=== PATIENT | male | born 1940 | race African-American/Black ===

== ENCOUNTER 2016-10-05 11:15 | Inpatient (IN) | payer MEDICARE ==
[~2016-10-05] VITALS: Ht 175.3 cm; Wt 69.4 kg
[2016-10-05 11:52] LABS: BASOPHILS 0.3 % (0.0-2.0); EOSINOPHILS 0.6 % (0-7); HEMATOCRIT 37.3 % (42.0-54.0); HEMOGLOBIN 12.3 g/dL (13.5-17.5); LYMPHOCYTES 38.5 % (15-50); MCH 27.4 pg (26.0-34.0); MCV 83.1 fL (80.0-100.0); MEAN PLATELET VOLUME 10.3 fL (7.4-10.4); MONOCYTES 8.5 % (2-11); NEUTROPHILS 52.1 % (40-80); PLATELET COUNT 192 10x3/uL (130-400); RBC 4.49 10x6/uL (4.20-6.10); WBC 3.4 10x3/uL (4.8-10.8)
[2016-10-05 12:05] LABS: ALBUMIN 3.4 g/dL (3.4-5.0); ANION GAP 16.3 mmol/L (8-16); BILIRUBIN - TOTAL 0.48 mg/dL (0.2-1.3); CALCIUM 9.4 mg/dL (8.5-10.1); CARBON DIOXIDE 23.3 mmol/L (21.0-32.0); CREATININE - SERUM 1.2 mg/dL (0.6-1.3); POTASSIUM - SERUM 4.6 mmol/L (3.5-5.1); PROTEIN - SERUM 8.1 g/dL (6.4-8.2); TROPONIN-I 0.049 ng/mL (0.000-0.060)
[2016-10-05 13:20] LABS: APPEARANCE CLEAR (CLEAR); BILIRUBIN NEGATIVE (NEGATIVE); COLOR YELLOW (YELLOW); GLUCOSE 1000 mg/dL (NEGATIVE); KETONE MODERATE mg/dL (NEGATIVE); LEUKOCYTE ESTERASE NEGATIVE (NEGATIVE); NITRITE NEGATIVE (NEGATIVE); PROTEIN NEGATIVE (NEGATIVE); UROBILINOGEN NORMAL (NORMAL)
--- NOTE | 2016-10-05 14:45 | NUR ---
PATIENT RECEIVED TO FLOOR FROM ER VIA WHEELCHAIR. ORIENTED TO ROOM. FAMILY PRESENT. SIDE RAILS UP X2. BED IN LOW POSITION. CALL LIGHT IN REACH.
[2016-10-05] MEDS ORDERED: METOPROLOL TART50 MG PO (15:06)
[2016-10-05] MEDS ORDERED: FUROSEMIDE40 MG PO (15:07)
[2016-10-05] MEDS ORDERED: ZESTRIL20 MG PO (15:07)
[2016-10-05] MEDS ORDERED: NOVOLOG MIX 70/10 ML SQ (15:07)
[2016-10-05] MEDS ORDERED: TERAZOSIN HCL2 MG PO (15:07)
[2016-10-05] MEDS ORDERED: CARAFATE1 G PO (15:08)
[2016-10-05] MEDS ORDERED: OMEPRAZOLE20 M1 PO (15:08)
[2016-10-05] MEDS ORDERED: PRAVACHOL40 MG PO (15:08)
[2016-10-05] MEDS ORDERED: GLUCOPHAGE500 MG PO (15:08)
[2016-10-05 15:14] VITALS: BP 172/89; BMI 21.4
[2016-10-05 15:32] LABS: HEMOGLOBIN A1C 14.2 % (4.8-6.0)
--- NOTE | 2016-10-05 16:20 | NUR ---
TELEMETRY PLACED ON PATIENT. CONSTRUCTION TRADES TEACHER REPORTS 105 SINUS TACH
--- NOTE | 2016-10-05 18:15 | NUR ---
SCDS PLACED BILATERALLY ON PATIENT. USE EXPLAINED. STATES UNDERSTANDING.
--- NOTE | 2016-10-05 20:00 | NUR ---
ASSESSMENT PER FLOWSHEET. IV PATENT LEFT WRIST WITH 1/2NS AT 75CC'S/HR SALINE LOCK PATENT RT HAND SITES CLEAR. VISITOR AT BEDSIDE.
[2016-10-05 21:00] VITALS: BP 122/77
--- NOTE | 2016-10-05 22:00 | NUR ---
MEDS PER FLOWSHEET.DAYD=654. REGULAR INSULIN 4 UNITS GIVEN SUBC PER S/S TO LEFT ARM.
[2016-10-06 01:00] VITALS: BP 126/76
--- NOTE | 2016-10-06 01:30 | NUR ---
EYES CLOSED RESPIRATIONS WITH EASE AND UNLABORED.
--- NOTE | 2016-10-06 04:11 | NUR ---
RESTING QUIETLY RESPIRATIONS WITH EASE AND UNLABORED.
[2016-10-06 05:00] VITALS: BP 125/66
[2016-10-06 06:51] LABS: BASOPHILS 0.3 % (0.0-2.0); EOSINOPHILS 0.6 % (0-7); HEMATOCRIT 33.9 % (42.0-54.0); IMMATURE GRANULOCYTES 0.3 % (0-5); LYMPHOCYTES 43.2 % (15-50); MCHC 32.4 g/dL (31.0-37.0); MCV 83.1 fL (80.0-100.0); MEAN PLATELET VOLUME 11.1 fL (7.4-10.4); MONOCYTES 10.4 % (2-11); NEUTROPHILS 45.2 % (40-80); PLATELET COUNT 182 10x3/uL (130-400); RBC 4.08 10x6/uL (4.20-6.10); RDW 14.9 % (11.5-14.5); WBC 3.1 10x3/uL (4.8-10.8)
[2016-10-06 07:21] LABS: ALBUMIN 2.8 g/dL (3.4-5.0); ALKALINE PHOSPHATASE 54 U/L (46-116); ALT (SGPT) 17 U/L (10-68); CALC OSMOLALITY 270 mosm/kg (275-300); CALCIUM 8.2 mg/dL (8.5-10.1); CARBON DIOXIDE 21.6 mmol/L (21.0-32.0); CHLORIDE - SERUM 96 mmol/L (98-107); CREATININE - SERUM 0.9 mg/dL (0.6-1.3); GLUCOSE 314 mg/dL (74-106); POTASSIUM - SERUM 3.9 mmol/L (3.5-5.1); PROTEIN - SERUM 6.7 g/dL (6.4-8.2); SODIUM 129 mmol/L (136-145); UREA NITROGEN 13 mg/dL (7-18); eGFR NON AFRICAN AMERICAN 87 mL/min (90-120)
[2016-10-06 08:32] VITALS: BP 128/58
--- NOTE | 2016-10-06 08:34 | NUR ---
PATIENT AWAKE, ALERT/ORIENT X4. SITTING UP AT THE SIDE OF THE BED TO EAT BREAKFAST. SCDS ON BILATERAL LEGS. HAS CALL LIGHT WITHIN REACH. VOICES NO NEEDS
[2016-10-06 09:18] LABS: CA 19-9 Note: U/mL (0-35); CEA 3.3 ng/mL (0.0-4.7)
--- NOTE | 2016-10-06 11:39 | NUR ---
Patient Name: TIM CANDELARIA Admission Status: ER Accout number: [id number] Admission Date: 10-05-2016 : 1939 Admission Diagnosis: Attending: GABRIELLE Current LOS: 1 Anticipated DC Date: 10-09-2016 Planned Disposition: Home with Home Health Primary Insurance: MEDICARE A & B Discharge Planning Comments: CM SPOKE WITH PATIENT REGARDING D/C NEEDS AND PLANS. PATIENT STATED HE LIVES ALONE AND HIS BROTHER (SOHAM) CHECKS ON HIM OFTEN. PATIENT STATED HIS BROTHER WILL DRIVE HIM HOME AT DISCHARGE. PATIENT STATED THERE ARE 2 STEPS W/O RAILS TO ENTER HOME AND NO STAIRS INSIDE. PATIENT STATED HE IS INDEPENDENT WITH HIS CARE AND HAS A GLUCOMETER, CANE, AND WALKER AT HOME IF NEEDED. PATIENT STATED HE KNOWS NOW TO CHECK HIS BS OFTEN. PATIENT STATED HE HAS NOT CHECKED IT IN SOMETIME. CM OFFERED HOME HEALTH AND PATIENT CHOSE [facility] AND SIGNED THE [facility] FORM. PATIENTS PCP IS DR. LANDAVERDE IN [place] AND USES [facility] IN [place]. CM WILL CONTINUE TO FOLLOW PATIENT WITH D/C NEEDS AND PLANS. PCP DR. AKHIL RENEE IN [place] (PHARMACY) [phone] SOHAM (BROTHER) [phone] OR [phone] Inclusion Special Education Teacher: Halye Stevens Is the patient Alert and Oriented? Yes 0 * How many steps to enter\exit or inside your home? 2 W/O RAIL 0 * PCP DR. LANDAVERDE 0 * Pharmacy [facility] IN [place] 0 * Preadmission Environment Home Alone 0 * ADLs Independent 0 * Equipment Cane Glucometer Walker 0 * List name and contact numbers for known caregivers / representatives who currently or will assist patient after discharge: SOHAM (BROTHER) [phone] W [phone] 0 * Community resources currently utilized None 0 * Additional services required to return to the preadmission environment? Yes 0 * Can the patient safely return to the preadmission environment? Yes 0 * Has this patient been hospitalized within the prior 30 days at any hospital? No 0 Grand Total: 0
--- NOTE | 2016-10-06 11:49 | NUR ---
INSULIN ADMINISTERED BY JOSE HAQ AT THIS TIME. PT IS SLEEPING WITH RESPIRATIONS EVEN AND NON LABORED. IV PATENT. NO S/S OF DISTRESS PRESENT. WILL CONTINUE WITH PLAN OF CARE.
[2016-10-06 11:50] VITALS: BP 109/61
[2016-10-06 12:32] VITALS: Ht 175.3 cm; Wt 69.4 kg
--- NOTE | 2016-10-06 13:00 | NUR ---
DR. ANTHONY INTO SEE PATIENT. NEW ORDERS RECEIVED.
--- NOTE | 2016-10-06 13:44 | NUR ---
Rehab Prescreening Consult recieved and the chart has been reviewed. He is a good inpatient rehab candidate but has a GI consult as well as a ST consult pending. Rehab will follow along with him while work up is in progress. Elmira Gutierres RN Clinical Liaison, rehab
[2016-10-06 16:17] VITALS: BP 90/40
--- NOTE | 2016-10-06 17:48 | NUR ---
PRN ZOFRAN GIVEN IV FOR NAUSEA
[2016-10-06 20:19] VITALS: BP 83/41
[2016-10-07 04:20] VITALS: BP 136/76
[2016-10-07 05:26] LABS: BASOPHILS 0.3 % (0.0-2.0); EOSINOPHILS 0.3 % (0-7); HEMATOCRIT 34.4 % (42.0-54.0); HEMOGLOBIN 11.1 g/dL (13.5-17.5); IMMATURE GRANULOCYTES 0.3 % (0-5); LYMPHOCYTES 27.9 % (15-50); MCHC 32.3 g/dL (31.0-37.0); MCV 83.7 fL (80.0-100.0); MEAN PLATELET VOLUME 11.2 fL (7.4-10.4); MONOCYTES 10.1 % (2-11); NEUTROPHILS 61.1 % (40-80); PLATELET COUNT 185 10x3/uL (130-400); RBC 4.11 10x6/uL (4.20-6.10); RDW 15.2 % (11.5-14.5); WBC 3.6 10x3/uL (4.8-10.8)
[2016-10-07 05:52] LABS: ALBUMIN 2.8 g/dL (3.4-5.0); ALKALINE PHOSPHATASE 52 U/L (46-116); ALT (SGPT) 17 U/L (10-68); AMYLASE - SERUM 76 U/L (25-115); CALC OSMOLALITY 260 mosm/kg (275-300); CALCIUM 8.2 mg/dL (8.5-10.1); CARBON DIOXIDE 25.7 mmol/L (21.0-32.0); CHLORIDE - SERUM 97 mmol/L (98-107); GLUCOSE 159 mg/dL (74-106); LIPASE 77 U/L (73-393); PROTEIN - SERUM 6.8 g/dL (6.4-8.2); SODIUM 128 mmol/L (136-145); THYROID STIMULATING HORMONE 4.35 uIU/mL (0.36-3.74); UREA NITROGEN 15 mg/dL (7-18); eGFR NON AFRICAN AMERICAN 77 mL/min (90-120)
--- NOTE | 2016-10-07 07:30 | NUR ---
RECIEVED PT DURING WALKING ROUNDS. PT RESTING COMFORTABLY IN BED WITH NO COMPLAINTS OF PAIN OR DISCOMFORT AT THIS TIME. ASSESSMENT DONE PER FLOWSHEET. BED IN LOW POSITION AND CALL LIGHT WITHIN REACH. WILL CONTINUE TO MONITOR.
--- NOTE | 2016-10-07 09:20 | NUR ---
HELD BP MEDICATION DUE TO PTS BP READING 100/54. WILL CONTINUE TO MONITOR.
[2016-10-07 10:06] VITALS: BP 100/54
--- NOTE | 2016-10-07 11:08 | NUR ---
NUTRITION MONITORING & EVAL ATTEMPTED DIABETIC DIET EDU. PT SLEEPING SOUNDLY. LEFT INFORMATION AT BEDSIDE. WILL TRY TO SEE PT WHEN AWAKE AND ALERT. RD FOLLOWING
--- NOTE | 2016-10-07 12:40 | NUR ---
SITTING UP ON SIDE OF BED EATING LUNCH. DENIES NEEDS. NO C/O PAIN AT THIS TIME. REPORTS CONTINUES UNABLE TO WALK. WILL MONITOR.
[2016-10-07 13:01] VITALS: BP 114/45
--- NOTE | 2016-10-07 16:19 | NUR ---
FSBS 68. PT GIVEN ORANGE JUICE AND GRAM CRACKERS AT THIS TIME. PT IS NOT SYMPOMATIC AT THIS TIME. WILL RECHECK SUGAR.
--- NOTE | 2016-10-07 17:33 | NUR ---
MONITORS CALLED ABOUT PT RUNNING IN THE 160'S HEART RATE, SINUS TACH WITH OCCASIONAL PVC'S. WENT TO CHECK ON PT AND HE WAS SITTING UP ON THE SIDE OF THE BED EATING DINNER. PT WAS ASYMPTOMATIC. CALLED MONITORS AT THIS TIME AND PT WAS 130ST. WILL CONTINUE TO MONITOR.
--- NOTE | 2016-10-07 17:56 | NUR ---
MONITORS CALLED AT THIS TIME, PT HEART RATE 120ST. PT IS LAYING IN BED WITH NO COMPLAINTS OF PAIN. FSBS 106. PT ATE 75% OF HIS DINNER. BED IN LOW POSITION AND CALL LIGHT WITHIN REACH. WILL CONTINUE TO MONITOR.
[2016-10-07 18:48] VITALS: BP 116/57
[2016-10-07 20:28] VITALS: BP 182/81
[2016-10-08] VITALS (7 sets, daily range): BP systolic 106–183; BP diastolic 63–87
--- NOTE | 2016-10-08 | NUR ---
BS 71 @ 8556, JUICE AND POPSICLE PROVIDED, 127 @ 4614, WILL CONTINUE TO MONITOR
--- NOTE | 2016-10-08 02:16 | NUR ---
RESTING WITH EYES CLOSED, RESP WITH EASE, NO ACUTE DISTRESS NOTED, SR'S UP, CL IN REACH
[2016-10-08 04:52] LABS: BASOPHILS 0.2 % (0.0-2.0); EOSINOPHILS 0 % (0-7); HEMOGLOBIN 10.4 g/dL (13.5-17.5); MCH 26.9 pg (26.0-34.0); MCHC 32.5 g/dL (31.0-37.0); MCV 82.7 fL (80.0-100.0); MEAN PLATELET VOLUME 10.9 fL (7.4-10.4); NEUTROPHILS 58.8 % (40-80); PLATELET COUNT 163 10x3/uL (130-400); RBC 3.87 10x6/uL (4.20-6.10); RDW 15.3 % (11.5-14.5); WBC 4.1 10x3/uL (4.8-10.8)
[2016-10-08 05:17] LABS: ALBUMIN 2.7 g/dL (3.4-5.0); ALKALINE PHOSPHATASE 53 U/L (46-116); ALT (SGPT) 14 U/L (10-68); CALC OSMOLALITY 257 mosm/kg (275-300); CALCIUM 7.8 mg/dL (8.5-10.1); CARBON DIOXIDE 20.4 mmol/L (21.0-32.0); CHLORIDE - SERUM 98 mmol/L (98-107); CREATININE - SERUM 0.8 mg/dL (0.6-1.3); GLUCOSE 100 mg/dL (74-106); PROTEIN - SERUM 6.5 g/dL (6.4-8.2); SODIUM 129 mmol/L (136-145); UREA NITROGEN 10 mg/dL (7-18); eGFR NON AFRICAN AMERICAN > 90 mL/min (90-120)
--- NOTE | 2016-10-08 08:36 | NUR ---
LYING IN BED,WITHOUT DISTRESS.DENIES NEEDS.CALL LIGHT IN REACH
--- NOTE | 2016-10-08 08:50 | NUR ---
WAS INFORMED BY NURSES AID AT THIS TIME THAT PT HAD TEMP OF 100.8F, RECHECKED TEMP ORALLY AND IT WAS 101.0F. CALL PLACED TO DR. ANTHONY AT THIS TIME, RECIEVED ORDERS FOR BLOOD CULTURES X2, URINE CULTURES, CHEST X-RAY, AND TYLENOL 625MG NEEDED FOR FEVER. PT IS ASYMPOTOMATIC AND STATES HE FEELS GOOD. BED IN LOW POSITION AND CALL LIGHT WITHIN REACH. WILL CONTINUE TO [facility].
--- NOTE | 2016-10-08 10:30 | NUR ---
TYLENOL WAS GIVEN AT 0920, TEMP RECHECKED AT THIS TIME AND IT WAS 99.0. URINE CULTURE OBTAINED AND SENT TO LAB AT THIS TIME.
--- NOTE | 2016-10-08 11:20 | NUR ---
LEFT HAND IV TAKEN OUT AT THIS TIME DUE TO PT ACCIDENTALLY PULLING IV PARTIALLY OUT. SECURED WITH GAUZE AND TAPE. BED IN LOW POSITION AND CALL LIGHT WITHIN REACH.
--- NOTE | 2016-10-08 16:20 | NUR ---
FSBS AT THIS TIME 37. RECHECKED AND IT WAS 45. CALL PLACED TO DR. ANTHONY AND RECIEVED ORDERS TO GIVE INSTA-GLUCOSE PER PROTOCOL AND RECHECK IN 30MINUTES. IF GLUCOSE DOES NOT COME UP ORDERS RECIEVED TO ADMINISTER 1AMP OF D50. SPOKE WITH DR. ANTHONY ABOUT PT SENSITVITY TO THE INSULIN HE IS RECIEVING. WAS INFORMED TO PASS ALONG IN REPORT AND DISCUSS WITH ON-CALL PHYSICIAN TOMORROW. WAS INSTRUCTED TO CALL HIM BACK IF GLUCOSE DOES NOT INCREASE. PT LYING IN BED ASYMPTOMATIC WILL ADMINISTER MEDICATION ORDERED.
--- NOTE | 2016-10-08 17:00 | NUR ---
FSBS 68 AT THIS TIME. PT HAD A LARGE LOOSE STOOL IN THE BED AT THIS TIME. HELPING CLEAN. APPROXIMATELY HALF GOLYTELY CONSUMED AT THIS TIME. BED IN LOW POSITION AND CALL LIGHT DEANHTSABINA REACH. WILL CONTINUE TO MONITOR.
--- NOTE | 2016-10-08 20:33 | NUR ---
RECIEVED PT SITTING UP IN BED, ASSESSMENT COMPLETED, NO DISTRESS NOTED, ENCOURAGED GOLYTELY, CL IN REACH, WILL MONITOR
--- NOTE | 2016-10-08 23:00 | NUR ---
BS 34, PT ANSWERING QUESTIONS, APPROX 5 CC INSTAGLUC GIVEN PO @ 2204, PT ABLE TO SWALLOW, REFUSED MORE, IMMEDIATELY BECAME EXTREMELY LETHARGIC, UNABLE TO RESPOND TO VOICE OR PAIN, GLUCAGON GIVEN @ 2207, SAT PATIENT UP IN BED, ANOTHER DOSE OF GLUCAGON GIVEN @ 2216, BS 50 @ 2218, 64 @ 2225 AND 115 @ 2235, PT ALERT AND ORIENTED, WILL CONTINUE TO MONITOR.
--- NOTE | 2016-10-09 01:03 | NUR ---
BS 207, NO DISTRESS NOTED, WILL MONITOR FOR CHANGES, CL IN REACH
--- NOTE | 2016-10-09 03:22 | NUR ---
BS 140, PT UP TO SHOWER, NO DISTRESS NOTED, WILL CONTINUE TO MONITOR
[2016-10-09 05:54] VITALS: BP 165/82
[2016-10-09 06:40] LABS: BASOPHILS 0.2 % (0.0-2.0); EOSINOPHILS 0 % (0-7); HEMATOCRIT 30.7 % (42.0-54.0); HEMOGLOBIN 9.9 g/dL (13.5-17.5); IMMATURE GRANULOCYTES 0.2 % (0-5); LYMPHOCYTES 20.7 % (15-50); MCH 26.8 pg (26.0-34.0); MCHC 32.2 g/dL (31.0-37.0); MCV 83.2 fL (80.0-100.0); MEAN PLATELET VOLUME 9.9 fL (7.4-10.4); MONOCYTES 12.5 % (2-11); NEUTROPHILS 66.4 % (40-80); PLATELET COUNT 139 10x3/uL (130-400); RBC 3.69 10x6/uL (4.20-6.10); RDW 15.2 % (11.5-14.5); WBC 4.6 10x3/uL (4.8-10.8)
[2016-10-09 07:06] LABS: ALBUMIN 2.6 g/dL (3.4-5.0); ALKALINE PHOSPHATASE 46 U/L (46-116); ALT (SGPT) 16 U/L (10-68); CALC OSMOLALITY 258 mosm/kg (275-300); CALCIUM 7.5 mg/dL (8.5-10.1); CARBON DIOXIDE 20.7 mmol/L (21.0-32.0); CHLORIDE - SERUM 97 mmol/L (98-107); CREATININE - SERUM 0.7 mg/dL (0.6-1.3); GLUCOSE 141 mg/dL (74-106); POTASSIUM - SERUM 3.7 mmol/L (3.5-5.1); PROTEIN - SERUM 6.2 g/dL (6.4-8.2); SODIUM 129 mmol/L (136-145); eGFR NON AFRICAN AMERICAN > 90 mL/min (90-120)
[2016-10-09 07:12] LABS: UREA NITROGEN 7 mg/dL (7-18)
[2016-10-09 09:23] VITALS: BP 168/65
--- NOTE | 2016-10-09 09:55 | NUR ---
PATIENT GIVEN ORAL MEDICATIONS. HE DID C/O A HEADACHE, RATED IT A 10. TYLENOL GIVEN. PATIENT IS RESTING, LAYING DOWN FLAT IN HIS BED, LIGHTS OUT, AWAKE AND ALERT. DENIES OTHER NEEDS AT THIS ITME. HE UNDERSTANDS THAT HE ISN'T TO EAT OR DRINK UNTIL AFTER HIS PROCEDURE PER HIS VERBAL STATEMENT.
--- NOTE | 2016-10-09 10:40 | NUR ---
PATINT SITTING UP ON THE BEDISDE WHEN I ENTER ROOM, HE IS GETTING UP TO THE RESTROOM. HE IS ABLE TO DO SO UNASSISTED. IV LEVAQUIN GIVEN TO RIGHT HAND IV THAT IS WIHTOUT S/S OF INFECTION OR REDNESS. HE STATES THAT HE GIRALDO IS GONE.
--- NOTE | 2016-10-09 12:20 | NUR ---
INSULIN WITHHELD DUE TO THE EXTENDED PERIOD HE IS EXPECTED TO BE NPO. HE BROTHER IS HERE AND HAS SIGNED HIS CONSENT FORMS. THE PATIENT STATES THAT HE IS UNABLE TO WRITE AND HIS BROTHER SIGNS ALL OF HIS MEDICAL AND LEGAL FORMS. HE UNDERSTANDS THE PROCEDURE AND THE ORDER IN WHICH THINGS ARE GOING TO HAPPEN. HE DENIES QUESTIONS AT THIS POINT. ENCOURAGED HIM TO ASK IF HE DOES COME UP WITH QUESTIONS. IV ABTS GIVEN. MONITORING.
[2016-10-09 12:57] VITALS: BP 134/78
--- NOTE | 2016-10-09 16:29 | NUR ---
PATIENT CURRENTLY RESTING QUIETLY WITH EYES CLOSED. NO NEEDS NOTED.
--- NOTE | 2016-10-09 17:50 | NUR ---
PATIENT'S FSBS REMAINS ELEVATED. PATIENT REMAINS NPO. INSULIN HELD AT THIS TIME. BROTHER REMAINS AT HIS BEDSIDE. THEY QUESTION WHEN HE WILL BE TAKEN FOR PROCEDURE. ENCOURAGED PATIENCE. EXPLAINED THAT THE MD HAD CLINIC TODAY AND IS COMING TO DO PROCEDURES THIS EVENING. THEY VOICE UNDERSTANDING. WESTLEY EXPRESSES HUNGER.
--- NOTE | 2016-10-09 18:09 | NUR ---
PATIENT OFF THE UNIT TO GI LAB FOR COLONOSCOPY AND EGD. HIS BROTHER IS GOING TO WAIT FOR HIM IN THE ROOM. HE IS EXPECTING TO SPEAK WITH THERE AFTER THE PROCEDURE.
--- NOTE | 2016-10-09 19:33 | NUR ---
RECIEVED PT FROM RECOVERY ACCOMPANIED BY FAMILY, ASSESSMENT COMPLETED, NO ACUTE DISTRESS NOTED, FALL PRECAUTIONS IN PLACE, CL IN REACH
--- NOTE | 2016-10-09 20:36 | NUR ---
ASSISTED TO RESTROOM WITH NO DISTRESS, MEDS GIVEN PER NOV, JACOB WELL, BS 244, INSULIN HELD DUE TO PT BEING EXTREMELY INSULIN SENSITIVE EVIDENCED BY BS OF 34 LAST PM, WILL MONITOR CLOSELY, CL IN REACH
[2016-10-09 21:00] VITALS: BP 159/91
--- NOTE | 2016-10-09 22:30 | NUR ---
MORPHINE GIVEN PER REQUEST FOT C/O GIRALDO 04/26, JACOB WELL, CL IN REACH, WILL MONITOR
[2016-10-10 01:00] VITALS: BP 155/94
--- NOTE | 2016-10-10 01:30 | NUR ---
RESTING WITH EYES CLOSED, RESP WITH EASE, NO DISTRESS NOTED, CL IN REACH
[2016-10-10 05:00] VITALS: BP 130/63
[2016-10-10 06:02] LABS: HEMATOCRIT 29.4 % (42.0-54.0); HEMOGLOBIN 9.1 g/dL (13.5-17.5); MCH 26.7 pg (26.0-34.0); MEAN PLATELET VOLUME 9.5 fL (7.4-10.4); PLATELET COUNT 134 10x3/uL (130-400); RBC 3.41 10x6/uL (4.20-6.10); RDW 15.9 % (11.5-14.5)
[2016-10-10 06:08] LABS: ALBUMIN 2.3 g/dL (3.4-5.0); ALKALINE PHOSPHATASE 44 U/L (46-116); ALT (SGPT) 15 U/L (10-68); BILIRUBIN - TOTAL 0.45 mg/dL (0.2-1.3); CALC OSMOLALITY 267 mosm/kg (275-300); CALCIUM 7.3 mg/dL (8.5-10.1); CARBON DIOXIDE 22.7 mmol/L (21.0-32.0); CHLORIDE - SERUM 100 mmol/L (98-107); CREATININE - SERUM 0.8 mg/dL (0.6-1.3); GLUCOSE 188 mg/dL (74-106); POTASSIUM - SERUM 3.5 mmol/L (3.5-5.1); PROTEIN - SERUM 5.6 g/dL (6.4-8.2); SODIUM 132 mmol/L (136-145); UREA NITROGEN 6 mg/dL (7-18); eGFR NON AFRICAN AMERICAN > 90 mL/min (90-120)
[2016-10-10 06:09] LABS: MCV 86.2 fL (80.0-100.0); WBC 2.6 10x3/uL (4.8-10.8)
[2016-10-10 06:33] LABS: LYMPHOCYTES 39 % (15-50); MONOCYTES 5 % (2-11); NEUTROPHILS 54 % (40-80)
[2016-10-10 06:34] LABS: ANISOCYTOSIS OCC; CRENATED CELLS OCC; PLATELET ESTIMATE NORMAL
--- NOTE | 2016-10-10 07:00 | NUR ---
REPORT RECIEVED ASSUMED CARE. PATIENT IN BED WITH IV INTACT. NO COMPLAINTS. CALL LIGHT WITHIN REACH.
[2016-10-10 09:14] VITALS: BP 139/59
[2016-10-10 11:10] VITALS: BP 150/78
--- NOTE | 2016-10-10 12:21 | NUR ---
NUTRITION MONITORING & EVAL CHART REVIEWED, PT VISIT. BREAKFAST @ BEDSIDE, BRIEFLY ATTEMPTED TO SPEAK WITH PT RE:DM DIET, STATED HE HAD NOT LOOKED AT LITERATURE PROVIDED. WANTED TO KNOW IF I COULD GIVE HIM "SOME PILLS TO GAIN WT." SECOND VISIT PT HAD VISITOR AT BEDSIDE, AND WAS ON CELL PHONE WELL. WANTED TO KNOW "IS THE DOCTOR HERE?" DID CONSUME 100% OF BREAKFAST AND WAS WAITING FOR LUNCH. RD FOLLOWING
[2016-10-10 15:46] VITALS: BP 149/72
--- NOTE | 2016-10-10 18:20 | OP ---
PATIENT NAME: TIM CANDELARIA MEDICAL RECORD: [id number] :39 LOCATION:[facility] ADMISSION DATE:10/05/16 SURGEON: AILEEN WILDER MD DATE OF OPERATION: 10/09/2016 PROCEDURE: 1. EGD with biopsy. 2. Colonoscopy. INDICATIONS: Mr. Candelaria is a very pleasant 76-year-old gentleman with a history of diabetes mellitus, who was admitted for further evaluation of inanition and significant weight loss. Over the past month, he has lost [address] of the chest and abdomen showed a short segment of wall thickening in the ascending colon (possibly due to underdistension), otherwise no suspicious masses. He also has mild anemia. He presents for inpatient EGD and colonoscopy. PREMEDICATIONS: Total IV anesthesia (propofol 250 mg). INSTRUMENT: [facility] video gastroscope and [facility] video colonoscope. PROCEDURE AND FINDINGS: After receiving informed consent, Mr. Candelaria's posterior pharynx was anesthetized with Cetacaine spray. He was placed in left lateral decubitus position and sedated as per anesthesia. After achieving adequate level of sedation, gastroscope was introduced per orally and advanced to the duodenum without difficulty. The esophageal mucosa was without erythema, ulcers, strictures, or masses; appeared normal down the GE junction. Gastric mucosa was notable for mild prepyloric and antral erythema and antral biopsies were obtained to rule out Helicobacter pylori. The gastric body had abnormally seen folds. There were multiple [id number]-lo-[id number] size angioectasias in the body of the stomach, proximal antrum, and in the fundus. None of them were actively bleeding and 7 were cauterized with the gold probe with good results. Pylorus was patent and competent. Duodenal mucosa was without erythema or ulcers; appeared normal through the second portion. The second portion of duodenum was without erythema, ulcers and biopsies were obtained to rule out celiac disease. The gastroscope was then withdrawn and Mr. Candelaria was prepared for colonoscopy. Digital rectal exam was performed that showed few external hemorrhoidal tags. No fissure or fistulas. Normal sphincter tone. No palpable rectal masses. Colonoscope was introduced per rectally and advanced to the cecum. In the cecum and the ascending colon there was a copious amount of thick liquid stool and a large amount of indigestible debris. Multiple lavages were performed. No masses or large polyps were observed. There is no blood seen in the colon. As the colonoscope was withdrawn, careful inspection was made of the gutierres of the colon. Overall, mucosa had normal vascular and fold pattern. Multiple lavages were performed. On retroflexion in the rectum showed mild internal hemorrhoids. Withdrawal time was 10 minutes. Mr. Candelaria tolerated the procedure well, no immediate complications. ASSESSMENT: 1. Multiple gastric angioectasias, status post cauterization with gold probe, likely source of anemia. 2. Mild gastritis. 3. Internal hemorrhoids. OPERATIVE REPORT [id number] TIM CANDELARIA 4. Poor colon prep. 5. Inanition and weight loss. RECOMMENDATIONS: 1. Follow up histopathology. 2. Recommend Protonix 40 mg p.o. daily for 2 months to help heal the post-cauterization site in the stomach. 3. Avoid nonsteroidal anti-inflammatory drugs. 4. Recommend an appetite stimulant. TRANSINT:[id number] Voice Confirmation ID: [id number] DOCUMENT ID: [id number] AILEEN WILDER MD at 1820 CC: RODRÍGUEZ MUELLER MD [id number] DICTATION DATE: 10/09/161915 SVP RESEARCH AND STRATEGIC ANALYSIS: 10/09/16 8790 ADM IN [facility] [address] [place] [address]
--- NOTE | 2016-10-10 19:52 | NUR ---
REPORT CALLED TO REHAB.
[2016-10-10 21:00] VITALS: BP 134/72
[2016-10-10] MEDS ORDERED: IPRAT-ALBUT 0.5-3 ML UPD (22:05)
[2016-10-10] MEDS ORDERED: ACETAMINOPHEN325 MG PO (22:05)
[2016-10-10] MEDS ORDERED: PEPCID40 MG PO (22:06)
[2016-10-10] MEDS ORDERED: LEVOFLOXAC250 MG/50 IV (22:07)
[2016-10-10] MEDS ORDERED: MEGACE400 MG/10 PO (22:08)
[2016-10-10] MEDS ORDERED: NICODERM C1 PATCH .1 TRANSDERM (22:10)
[2016-10-10] MEDS ORDERED: MORPHINE 44 MG/1 M1 IV (22:10)
[2016-10-10] MEDS ORDERED: ONDANSETRON4 MG/2 M3 IV (22:11)
[2016-10-10] MEDS ORDERED: HUMULIN R100 U/ML SC (22:15)
--- NOTE | 2016-10-11 14:16 | EC ---
PATIENT:TIM CANDELARIA DATE OF SERVICE: 10/05/16 SEX: M MEDICAL RECORD: [id number] DATE OF : 39 LOCATION:[facility] AGE OF PATIENT: 76 ADMISSION DATE: 10/05/16 REFERRING PHYSICIAN: INTERPRETING PHYSICIAN: MATIAS THACKER MD ECHOCARDIOGRAM REPORT ECHO CHARGES 4 ECHO COMPLETE CLINICAL DIAGNOSIS: SOB ECHOCARDIOGRAPHIC MEASUREMENTS (adult normal given) AC root (d.<3.7cm) 3.5 LV Septum d (<1.2 cm> 1.4 Valve Excursion 2.2 LV Septum (systole) 1.7 Left Atria (s.<4.0cm> 3.6 LVPW d(<1.2cm) 1.5 RV (d.<2.3cm) 4.1 LVPW (sytole) 1.9 LV diastole(<5.6CM) 4.6 MV E-F(>70mm/sec) LV systole 3.0 LVOT Diameter MV exc.(>10mm) 1.6 Est.ejection fraction (50-75%) Pericardial Effusion N DOPPLER: LVIT A 83.0 E 51.0 LA RVSP LVOT 78 AOP1/2T Asc. Ao 107 RVOT RA PA AV Gradient Peak 4.42 AV Mean 2.03 AV Area 3.0 MV Gradient Peak 3.6 MV Mean 1.20 MV Area COMMENTS: Room Manager: Terrence PERALTA Venetian Blind Cleaner:1 Dr. Cruz TAPE# PACS DATE OF SERVICE: 10/06/2016 Adequate 2D echo, color flow, spectral Doppler and M-mode. LVH present. LV internal dimensions are normal. Wall motion is normal. EF is greater than or equal to 55%. Aortic valve sclerosis without stenosis by Doppler interrogation. The left atrium is normal at 3.6 cm. Mitral valve shows no prolapse. Trace MR. Right-sided chamber is grossly normal. Trace TR. TRANSINT:[id number] Voice Confirmation ID: [id number] DOCUMENT ID: [id number] 10/11/2016 Edited to correct date of service, dmm. ECHOCARDIOGRAM REPORT [id number] TIM CANDELARIA MATIAS THACKER MD at 1416 CC: [id number] DICTATION DATE: 10/08/16 1059 K 9 POLICE OFFICER: 10/08/16 2135 DIS IN 10/10/16 [facility] [address] [place] [address]
--- NOTE | 2016-12-14 11:10 | DS ---
PATIENT:TIM CANDELARIA :38 MEDICAL RECORD: [id number] DISCHARGE SUMMARY ADMISSION DATE: 10/05/16 DISCHARGE DATE: 10/10/16 DATE OF ADMISSION 10/05/2016 DATE OF DISCHARGE: 10/10/2016 DISCHARGE DIAGNOSES: 1. Weakness. 2. Unintentional weight loss. 3. Nicotine dependency. 4. Diabetes mellitus. 5. Hypertension. 6. Hyperlipidemia. 7. Mild anemia. CONSULTS: Janessa Avila MD. DIAGNOSTIC TESTS AND PROCEDURES: 1. EGD with biopsies which showed mild gastritis. 2. Colonoscopy, which showed internal hemorrhoids. OTHER TESTS: 1. A 2D Echo which showed LVEF of 55% with a normal valvular integrity and normal right-sided chamber size. 2. CT abdomen and pelvis, which showed somewhat thickening in the ascending colon, but otherwise unremarkable. HOSPITAL COURSE: The full H&P is listed elsewhere in the chart for this 76-year-old male patient who was admitted from Dr. Maza's office to med-on-call for unintentional weight loss and some anemia. The patient was admitted to the inpatient setting, underwent several diagnostic tests, see those findings above. The patient was started on insulin sliding scale along with electrolyte protocol and daily PPI, ____ was on board. The patient underwent EGD and colonoscopy, see those findings. His EGD showed somewhat gastric AVMs which was thought to be the etiology of his anemia. His colonoscopy was negative. The patient was started on Megace therapy. His Protonix was discontinued due to some headaches. He was thought to be stable and was transferred to the inpatient rehabilitation. See med rec. TRANSINT:[id number] Voice Confirmation ID: [id number] DOCUMENT ID: [id number] Dictated By: NILES ASHTON I have interviewed/examined the above patient and agree with these documented findings. DISCHARGE SUMMARY REPORT [id number] TIM CANDELARIA ANDREW, JOSÉ MANUEL GERBER at 1110 at 0811 CC: [id number] DICTATION DATE: 12/13/16 0912 SKIP PITMAN: 12/14/16 0101 DIS IN 10/10/16 [id number] [place] [address]
== END 2016-10-10 22:35 | DRG 377 ==
LOC: D.ER 11:15 → D.MS 14:15
PROVIDERS: Emergency Medicine; Internal Medicine Gastroenterology; ADMIT Family Medicine
PROC: 0W3P8ZZ Control Bleeding in Gastrointestinal Tract, Via Natural or Artificial Opening Endoscopic (ICD-10-PCS; 2016-10-09)
PROC: 3E1 Administration, Physiological Systems and Anatomical Regions, Irrigation (ICD-10-PCS; 2016-10-09)
PROC: 0DB68ZX Excision of Stomach, Via Natural or Artificial Opening Endoscopic, Diagnostic (ICD-10-PCS; principal; 2016-10-09 16:00)
DX: K31.811 Angiodysplasia of stomach and duodenum with bleeding (principal); I50.21 Acute systolic (congestive) heart failure; F17.203 Nicotine dependence unspecified, with withdrawal; E87.1 Hypo-osmolality and hyponatremia; I13.0 Hypertensive heart and chronic kidney disease with heart failure and stage 1 through stage 4 chronic kidney disease, or unspecified chronic kidney disease; E44.0 Moderate protein-calorie malnutrition; K29.70 Gastritis, unspecified, without bleeding; R53.1 Weakness; Z68.21 Body mass index [BMI] 21.0-21.9, adult; E78.5 Hyperlipidemia, unspecified; E11.9 Type 2 diabetes mellitus without complications; Z79.4 Long term (current) use of insulin; K64.8 Other hemorrhoids; D50.0 Iron deficiency anemia secondary to blood loss (chronic); N18.9 Chronic kidney disease, unspecified; K64.4 Residual hemorrhoidal skin tags; Z68.22 Body mass index [BMI] 22.0-22.9, adult

== ENCOUNTER 2016-10-10 22:35 | Inpatient (IN) | payer MEDICARE ==
[~2016-10-10] VITALS: Ht 175.3 cm; Wt 64.4 kg
[~2016-10-10 22:35] MED LIST: ACETAMINOPHEN325 MG PO; CARAFATE1 G PO; FUROSEMIDE40 MG PO; GLUCOPHAGE500 MG PO; HUMULIN R100 U/ML SC; IPRAT-ALBUT 0.5-3 ML UPD; LEVOFLOXAC250 MG/50 IV; MEGACE400 MG/10 PO; METOPROLOL TART50 MG PO; MORPHINE 44 MG/1 M1 IV; NICODERM C1 PATCH .1 TRANSDERM; NOVOLOG MIX 70/10 ML SQ; OMEPRAZOLE20 M1 PO; ONDANSETRON4 MG/2 M3 IV; PEPCID40 MG PO; PRAVACHOL40 MG PO; TERAZOSIN HCL2 MG PO; ZESTRIL20 MG PO
--- NOTE | 2016-10-10 22:35 | NUR ---
PT ARRIVED TO UNIT VIA WC PROPELLED BY STAFF. ADMITTED TO ROOM 1119B TO DR MONTEIRO SERVICES. ORIENTED TO ROOM AND UNIT RULES WITH VERBAL UNDERSTANDING VOICED. PTS NIECE SIGNED ALL HIS ADMIT PAPERWORK, DUE TO PT BEING UNABLE TO READ OR WRITE. PT IS ALERT AND ORIENTED X 3. IV TO RIGHT HAND NOTED TO HAVE 2+ EDEMA IN HIS RIGHT HAND. IV DC'D WITH CATHETER INTACT. BANDAID APPLIED TO SITE. PT WILL NEED NEW ACCESS BEFORE HIS NEXT DOSE OF ANTIBIOTIC. MALINI ALARM PLACED ON BED. SR'S ARE UP X 2 IN BED. CALL LIGHT AND BEDSIDE TABLE ARE WITHIN EASY REACH.
[2016-10-10 23:21] VITALS: BMI 21.0
[2016-10-10 23:45] VITALS: BP 130/80
--- NOTE | 2016-10-10 23:50 | NUR ---
ADMISSION ASSESSMENT COMPLETED. PATIENT DENIES PAIN OR OTHER DISTRESS.
--- NOTE | 2016-10-11 00:01 | NUR ---
PT USED URINAL. 250 CC DARK YELLOW URINE NOTED.
--- NOTE | 2016-10-11 01:33 | NUR ---
RESTING QUIETLY IN BED WITH EYES CLOSED. RESPS ARE EVEN AND UNLABORED. NO ACUTE DISTRESS NOTED.
[2016-10-11 06:13] LABS: BASOPHILS 0.3 % (0.0-2.0); EOSINOPHILS 0.6 % (0-7); HEMOGLOBIN 9.7 g/dL (13.5-17.5); IMMATURE GRANULOCYTES 0.3 % (0-5); LYMPHOCYTES 36.2 % (15-50); MCH 26.9 pg (26.0-34.0); MCHC 32.3 g/dL (31.0-37.0); MONOCYTES 9.3 % (2-11); NEUTROPHILS 53.3 % (40-80); PLATELET COUNT 152 10x3/uL (130-400); RDW 15.3 % (11.5-14.5); WBC 3.2 10x3/uL (4.8-10.8)
[2016-10-11 06:19] LABS: MCV 83.3 fL (80.0-100.0)
[2016-10-11 06:31] LABS: CALC OSMOLALITY 264 mosm/kg (275-300); CALCIUM 7.9 mg/dL (8.5-10.1); CARBON DIOXIDE 22.7 mmol/L (21.0-32.0); CHLORIDE - SERUM 99 mmol/L (98-107); CREATININE - SERUM 0.8 mg/dL (0.6-1.3); GLUCOSE 187 mg/dL (74-106); POTASSIUM - SERUM 3.4 mmol/L (3.5-5.1); SODIUM 131 mmol/L (136-145); UREA NITROGEN 5 mg/dL (7-18); eGFR NON AFRICAN AMERICAN > 90 mL/min (90-120)
--- NOTE | 2016-10-11 06:35 | NUR ---
PT RESTING IN BED WITH EYES CLOSED. USING URINAL PRN.
[2016-10-11 08:00] VITALS: BP 162/82
--- NOTE | 2016-10-11 08:00 | NUR ---
PATIENT SITTING UP IN BED FOR BREAKFAST. ALERT/ORIENT. VOICES NO NEEDS. CALL LIGHT WITHIN REACH
--- NOTE | 2016-10-11 10:20 | NUR ---
PATIENT WORKING WITH OCCUPATIONAL THERAPIST TO GET A SHOWER.
[2016-10-11 12:30] VITALS: Ht 175.3 cm; Wt 64.4 kg
--- NOTE | 2016-10-11 12:33 | NUR ---
TWENTY-TWO UNITS OF NOVOLOG 70 MIX HELD. GLUCOSE LEVEL 88. PATIENT ONLY ATE 50% OF HIS LUNCH
--- NOTE | 2016-10-11 15:06 | NUR ---
PT IS RESTING IN BED WITH EYES CLOSED AT THIS TIME. STABLE CONDITION OBSERVED. NO SIGNS OF ANY PAIN OR DISCOMFORT. CALL LIGHT IN REACH. WILL CONTINUE TO OBSERVE AND ASSIST PRN WITH ADL'S.
--- NOTE | 2016-10-11 16:36 | NUR ---
CARE TEAM MEETING: PATIENT NEW TO UNIT AND WILL BE RA AT NEXT MEETING. PCP IS DR. LANDAVERDE IN [place], HE HAS USED [facility] IN THE PAST . HAS CANE, WALKER, AND GLUCOMETER. WILL CONTINUE TO FOLLOW WITH PATIENT UNTIL DISCHARGED
--- NOTE | 2016-10-11 17:00 | NUR ---
TWENTY-TWO UNITS OF NOVOLOG 70 MIX HELD DUE TO GLUCOSE LEVEL ONLY 68. NOTE LEFT FOR DR LUA IN REGARDS TO LOW GLUCOSE LEVELS TODAY
--- NOTE | 2016-10-11 19:55 | NUR ---
PT. LYING IN BED WITH HOB UP FOR COMFORT. REQUESTED ASSISTANCE WITH GETTING WET BOOTIES OFF AND CLEAN DRY SOCKS PLACED. ASSESSMENT COMPLETED. CALL LIGHT WITHIN REACH.
--- NOTE | 2016-10-11 21:20 | NUR ---
OFFERED GREY CRACKERS AND LOW FAT MILK FOR BEDTIME SNACK.
[2016-10-11 21:28] VITALS: BP 158/81
--- NOTE | 2016-10-11 23:07 | NUR ---
PT. IN BED WITH HOB UP FOR COMFORT WITH EYES CLOSED AND RESP. EVEN. CALL LIGHT WITHIN REACH.
--- NOTE | 2016-10-12 02:24 | NUR ---
PT. IN BED WITH HOB UP FOR COMFORT AND IS WATCHING TV. PT. HAS NO VOICED NEEDS AT THIS TIME AND HIS CALL LIGHT IS WITHIN REACH.
--- NOTE | 2016-10-12 04:35 | NUR ---
PT. IN BED WITH HOB UP FOR COMFORT WITH EYES CLOSED AND RESP. EVEN. CALL LIGHT WITHIN REACH. URINAL ON BEDSIDE TABLE STILL EMPTY SINCE THE LAST TIME I EMPTIED IT.
--- NOTE | 2016-10-12 07:33 | NUR ---
RESTING QUIETLY IN BED. CALL LIGHT IN REACH
[2016-10-12 11:18] VITALS: BP 156/96
--- NOTE | 2016-10-12 14:20 | NUR ---
ORDER FAXED TO [facility] FOR ROBE WALKER, DUE TO PATIENT HAVING [employer] INSURANCE
[2016-10-12 18:50] VITALS: BP 128/70
--- NOTE | 2016-10-12 20:54 | NUR ---
AT 2039 PT FSBS WAS 42. PT GIVEN APPLE JUICEX2 AND GREY CRACKERS WITH PEANUT BUTTER. PT FSBS RECHECK AT 2053 WAS 68. PT IS ALERT, TALKING AND EATING. WCTM. BED LOW. CL IN REACH.
--- NOTE | 2016-10-12 22:15 | NUR ---
PT REQ AND REC'D TYLENOL FOR BACK PAIN. WCTM. BED LOW. CL IN REACH.
--- NOTE | 2016-10-13 00:08 | NUR ---
PT RESTING, EYES CLOSED. BED LOW. CL IN REACH. WCTM.
--- NOTE | 2016-10-13 03:45 | NUR ---
PT RESTING, EYES CLOSED. BED LOW. CL IN REACH. WCTM.
--- NOTE | 2016-10-13 06:13 | NUR ---
PT FSBS 87 THIS AM REQUIRED NO INSULIN. PT DRESSED FOR THE DAY AND DENIES NEEDS. WCTM. BED LOW. CL IN REACH.
[2016-10-13 07:08] LABS: BASOPHILS 0 % (0.0-2.0); EOSINOPHILS 0.7 % (0-7); HEMATOCRIT 30.4 % (42.0-54.0); IMMATURE GRANULOCYTES 0.3 % (0-5); LYMPHOCYTES 35.1 % (15-50); MCHC 32.9 g/dL (31.0-37.0); MCV 81.9 fL (80.0-100.0); MEAN PLATELET VOLUME 10.6 fL (7.4-10.4); NEUTROPHILS 50.9 % (40-80); PLATELET COUNT 158 10x3/uL (130-400); RBC 3.71 10x6/uL (4.20-6.10); RDW 15.3 % (11.5-14.5)
[2016-10-13 07:26] LABS: CALC OSMOLALITY 262 mosm/kg (275-300); CALCIUM 9.1 mg/dL (8.5-10.1); CARBON DIOXIDE 26.3 mmol/L (21.0-32.0); CHLORIDE - SERUM 98 mmol/L (98-107); CREATININE - SERUM 0.9 mg/dL (0.6-1.3); GLUCOSE 75 mg/dL (74-106); POTASSIUM - SERUM 3.4 mmol/L (3.5-5.1); SODIUM 133 mmol/L (136-145); UREA NITROGEN 8 mg/dL (7-18); eGFR NON AFRICAN AMERICAN 87 mL/min (90-120)
[2016-10-13 07:53] VITALS: BP 168/89
--- NOTE | 2016-10-13 08:00 | NUR ---
AWAKE.DISPOSABLE PULL UP CHECKED AND NOTED IT DRY.ASSISTED OOB,BREAKFAST GIVEN.
--- NOTE | 2016-10-13 12:00 | NUR ---
SITTING UP EATING LUNCH.CL IN REACH.
--- NOTE | 2016-10-13 13:58 | NUR ---
Nutrition Follow Up: Chart reviewed. Pt is eating 56% on a Diabetic diet. Wt stable. No BM recorded since admit. Labs noted - Na, K+ low. Meds: Megace. Rec continue current diet and appetite stimulant. Will continue to provide selective menus and honor food preferences. RD following.
--- NOTE | 2016-10-13 16:00 | NUR ---
RESTING QUIETLY.CL IN REACH.
[2016-10-13 19:51] VITALS: BP 129/59
--- NOTE | 2016-10-13 20:30 | NUR ---
PT GIVEN 4 UNITS SLIDING SCALE INSULIN FOR 238 FSBS. PT TOOK HS MEDS WITHOUT DIFFICULTY. PT STATES NO NEEDS AT THIS TIME. BED LOW. CL IN REACH.
--- NOTE | 2016-10-13 22:10 | NUR ---
PT HAD EPISODE OF INCONTINENCE. PT BED LINENS CHANGED, BED BATH GIVEN AND CLOTHING CHANGED. PT DENIES NEEDS AT THIS TIME. BED LOW. CL IN REACH.
--- NOTE | 2016-10-14 00:42 | NUR ---
PT RESTING, EYES CLOSED. BED LOW. CL IN REACH.
--- NOTE | 2016-10-14 02:15 | NUR ---
PT RESTING, EYES CLOSED. BED LOW. CL IN REACH.
--- NOTE | 2016-10-14 05:05 | NUR ---
PT SET OFF BED ALARM, FOUND STANDING IN ROOM TRYING TO FIND HIS CLOTHES TO GET DRESSED. ASSISTED PT TO GET DRESSED. PT BACK IN BED RESTING AND MANDY REMEDIOS NEEDS AT THIS TIME. BED LOW. CL IN REACH.
[2016-10-14 07:00] VITALS: BP 166/93
--- NOTE | 2016-10-14 08:00 | NUR ---
ASSISTED OOB TO WC.BREAKFAST GIVEN.CL IN REACH.
--- NOTE | 2016-10-14 12:00 | NUR ---
UP TO SIDE OF BED FOR LUNCH.FAMILY VISITING.
--- NOTE | 2016-10-14 13:30 | NUR ---
INCONTINENT OF URINE.CLENED AND CHANGED.CL IN REACH.
--- NOTE | 2016-10-14 16:00 | NUR ---
IN PT WITH THERAPY.
--- NOTE | 2016-10-14 19:30 | NUR ---
PT IS RESTING IN BED WITH EYES OPEN. ALERT AND ORIENTED X 3. DENIES ACUTE DISCOMFORT AT THIS TIME. VSS. SR'S ARE UP X 2 IN BED. CALL LIGHT AND BEDSIDE TABLE ARE WITHIN EASY REACH.
[2016-10-14 20:00] VITALS: BP 142/81
--- NOTE | 2016-10-14 22:13 | NUR ---
RESTING QUIETLY IN BED WITH EYES CLOSED. RESPS ARE EVEN AND UNLABORED. NO ACUTE DISTRESS NOTED.
--- NOTE | 2016-10-15 00:30 | NUR ---
PT RESTING QUIETLY IN BED WITH EYES CLOSED. NO ACUTE DISTRESS NOTED.
--- NOTE | 2016-10-15 03:53 | NUR ---
PT RESTING IN BED WITH EYES CLOSED. USING URINAL PRN.
--- NOTE | 2016-10-15 06:15 | NUR ---
pt resting quietly, no s/s of acute distress, eyes closed. pt is impulsive at times. frequent checks.
[2016-10-15 07:00] VITALS: BP 131/60
--- NOTE | 2016-10-15 08:00 | NUR ---
SHIFT ASSMT COMPLETED.DENIES NEEDS.MEAL SET UP FOR BREAKFAST PROVIDED.
--- NOTE | 2016-10-15 12:00 | NUR ---
UP IN BED.MEAL TRAY GIVEN.FAMILY VISITING.
--- NOTE | 2016-10-15 20:00 | NUR ---
PT NOTED STANDING BESIDE HIS BED URINATING ON THE FLOOR WITH HIS URINAL SITTING ON THE BED RIGHT BESIDE HIM. PT INFORMED THAT THIS IS NOT PROPER BEHAVIOR, AND HE NEEDED TO USE HIS URINAL AT ALL TIMES, AND CALL FOR ASSISTANCE AT ALL TIMES. HE VOICED VERBAL UNDERSTANDING. CALL LIGHT AND BEDSIDE TABLE ARE WITHIN EASY REACH.
[2016-10-15 20:39] VITALS: BP 139/71
--- NOTE | 2016-10-15 22:16 | NUR ---
PT RESTING IN BED WITH EYES CLOSED. NO DISTRESS NOTED.
--- NOTE | 2016-10-16 00:12 | NUR ---
PT RESTING, EYES CLOSED. BED LOW. CL IN REACH.
--- NOTE | 2016-10-16 06:06 | NUR ---
PT NOTED TO BE INC. OF URINE. BED PAD AND BRIEF CHANGED. NO PANTS DONNED ON PT DUE TO HIM BEING UNABLE TO VOID IN URINAL WITH THEM ON.
[2016-10-16 06:48] LABS: CALC OSMOLALITY 259 mosm/kg (275-300); CALCIUM 8.3 mg/dL (8.5-10.1); CARBON DIOXIDE 24.4 mmol/L (21.0-32.0); CHLORIDE - SERUM 96 mmol/L (98-107); CREATININE - SERUM 0.8 mg/dL (0.6-1.3); POTASSIUM - SERUM 3.3 mmol/L (3.5-5.1); SODIUM 128 mmol/L (136-145); UREA NITROGEN 10 mg/dL (7-18); eGFR NON AFRICAN AMERICAN > 90 mL/min (90-120)
[2016-10-16 06:50] LABS: GLUCOSE 171 mg/dL (74-106)
[2016-10-16 06:54] LABS: BASOPHILS 0.3 % (0.0-2.0); EOSINOPHILS 0.6 % (0-7); HEMATOCRIT 29.3 % (42.0-54.0); HEMOGLOBIN 9.6 g/dL (13.5-17.5); IMMATURE GRANULOCYTES 0.3 % (0-5); LYMPHOCYTES 39.8 % (15-50); MCH 27.1 pg (26.0-34.0); MCHC 32.8 g/dL (31.0-37.0); MCV 82.8 fL (80.0-100.0); MEAN PLATELET VOLUME 10.1 fL (7.4-10.4); MONOCYTES 12.5 % (2-11); NEUTROPHILS 46.5 % (40-80); PLATELET COUNT 153 10x3/uL (130-400); RBC 3.54 10x6/uL (4.20-6.10); WBC 3.2 10x3/uL (4.8-10.8)
[2016-10-16 07:54] VITALS: BP 165/87
[2016-10-16 19:15] VITALS: BP 120/64
--- NOTE | 2016-10-16 19:45 | NUR ---
PT. IN BED WITH HOB UP FOR COMFORT AND IS WATCHING TV. PT. REQUESING PAIN MEDICATION FOR HIS BACK. ASSESSMENT COMPLETED. CALL LIGHT AND URINAL WITHIN REACH.
--- NOTE | 2016-10-16 22:30 | NUR ---
PT. IN BED WITH HOB UP FOR COMFORT WITH EYES CLOSED AND RESP. EVEN WITH CALL LIGHT WITHIN REACH.
--- NOTE | 2016-10-17 02:12 | NUR ---
PT. IN BED WITH HOB UP FOR COMFORT AND IS WATCHING TV. PT. DENIES ANY NEEDS AND HAS HIS CALL LIGHT WITHIN REACH.
[2016-10-17 08:47] VITALS: BP 135/66
--- NOTE | 2016-10-17 13:50 | NUR ---
Nutrition Follow Up: Pt was out of room at the time of RD visit. Pt is eating 64% meal avg on ADA diet. +BM 10/16/16. No new wt to assess. Labs noted - Glucose elevated. Meds noted including Glyburide, Metformin, Megace, Lasix, Novolog, Humulin. Pt with fair po intake at this time. Rec continue current diet and appetite stimulant. RD following.
--- NOTE | 2016-10-17 18:39 | NUR ---
RESTING QUIETLY IN BED. CALL LIGHT IN REACH
[2016-10-17 18:40] VITALS: BP 120/74
--- NOTE | 2016-10-17 20:41 | NUR ---
PT HS MEDS GIVEN. PT FSBS 178. PT REQUESTED ONLY 2 UNITS BE GIVEN. PT EATING A SNACK OF GREY CRACKERS AND MILK. WCTM. BED LOW. CL INR EACH.
--- NOTE | 2016-10-17 22:16 | NUR ---
PT RESTING IN BED EATING SNACK. PT DENIES FURTHUR NEEDS AT THIS TIME. BED LOW. CLIN REACH.
--- NOTE | 2016-10-18 00:33 | NUR ---
PT RESTING, EYES CLOSED. BED LOW. CLIN REACH.
--- NOTE | 2016-10-18 02:08 | NUR ---
PT RESTING, EYES CLOSED. RR ARE EVEN AND UNLABORED. WCTM. BED LOW. CL IN REACH.
[2016-10-18 06:49] LABS: BASOPHILS 0 % (0.0-2.0); HEMATOCRIT 30.9 % (42.0-54.0); HEMOGLOBIN 10.1 g/dL (13.5-17.5); IMMATURE GRANULOCYTES 0.3 % (0-5); LYMPHOCYTES 36.9 % (15-50); MCHC 32.7 g/dL (31.0-37.0); MCV 82.6 fL (80.0-100.0); MEAN PLATELET VOLUME 9.6 fL (7.4-10.4); MONOCYTES 10.3 % (2-11); NEUTROPHILS 51.5 % (40-80); PLATELET COUNT 136 10x3/uL (130-400); RBC 3.74 10x6/uL (4.20-6.10); RDW 15.2 % (11.5-14.5); WBC 3.1 10x3/uL (4.8-10.8)
[2016-10-18 07:05] LABS: CALC OSMOLALITY 265 mosm/kg (275-300); CALCIUM 8.8 mg/dL (8.5-10.1); CARBON DIOXIDE 23.3 mmol/L (21.0-32.0); CHLORIDE - SERUM 96 mmol/L (98-107); CREATININE - SERUM 0.8 mg/dL (0.6-1.3); GLUCOSE 212 mg/dL (74-106); POTASSIUM - SERUM 3.8 mmol/L (3.5-5.1); SODIUM 129 mmol/L (136-145); UREA NITROGEN 16 mg/dL (7-18); eGFR NON AFRICAN AMERICAN > 90 mL/min (90-120)
--- NOTE | 2016-10-18 08:00 | NUR ---
SHIFT ASSMT COMPLETED.WAS COMPLETELY SAOKED THIS AM WITH URINE.CLEANED AND CHANGED.BREAKFAST GIVEN.CL IN REACH.ALARM ON.
[2016-10-18 08:10] VITALS: BP 140/88
--- NOTE | 2016-10-18 08:44 | RHP ---
PATIENT: TIM CANDELARIA MEDICAL RECORD: [id number] ACCOUNT: [id number] LOCATION:[facility]1119 : 39 ADMISSION DATE: 10/10/16 REHABILITATION HISTORY AND PHYSICAL EXAMINATION POST ADMISSION PHYSICIAN EXAMINATION DATE OF ADMISSION TO THE REHAB: 10/10/2016 ADMITTING DIAGNOSES: Severe malnutrition of acute illness and weight loss greater than 50 pounds. HISTORY OF PRESENT ILLNESS: The patient is a 76-year-old gentleman with history of diabetes, admitted for significant weight loss with severe malnutrition of acute illness with the past month, he has lost approximately 50 pounds with poor appetite. CT of his chest and abdomen showed a short segment of wall thickening in ascending colon, otherwise no suspicious masses. He was found to be fatigued and weak with severe malnutrition. He denies any swallowing problems. He is a diabetic, but admits he does not check his blood sugars at home. Fingerstick blood sugars ranged from 34 up to 43. He was placed on a low resistant sliding scale. An EGD and colonoscopy showed multiple gastric ____ status post cauterization with a gold probe likely source of anemia, mild gastritis and internal hemorrhoids and weight loss. Prior to the admission, he was independent with ADLs and mobility. Currently, he admitted to [facility] for ADLs and mobility definitely we will benefit from inpatient rehabilitation. COMORBIDITIES: Include hyponatremia, fatigue, weakness and decreased appetite, hyperglycemia, fever, hypertension, hyperlipidemia, anemia, tachycardia, and nausea. PAST MEDICAL HISTORY: Significant for diabetes, hypertension, and history of tobacco use. PAST SURGICAL HISTORY: He denies any surgeries. ALLERGIES: No known drug allergies. CURRENT MEDICATIONS: Include he is on an electrolyte protocol at this time. He is on glucagon p.r.n. low blood sugar, he is on Hytrin 2 mg daily. He is on Carafate 1 gram b.i.d., Pravachol 40 mg at bedtime, Nicoderm patch to apply daily, metoprolol 50 mg b.i.d., Megace 400 mg daily, Levaquin 750 mg daily. He is on insulin with meals and also on an intermediate resistance sliding scale, furosemide 40 mg daily, Pepcid 40 mg b.i.d., Zofran 4 mg q.4 hours p.r.n., morphine p.r.n., DuoNeb updrafts and acetaminophen as needed. HABITS: He does have a history of tobacco use. FAMILY HISTORY: Noncontributory. SOCIAL HISTORY: The patient has never been . He wants to return back home, he lives over in [place]. REVIEW OF SYSTEMS: GENERAL: He does complain of weakness and fatigue. HEENT: He Denies cold, cough, or congestion. CARDIOVASCULAR: She denies chest pain. HISTORY AND PHYSICAL [id number] TIM CANDELARIA PHYSICAL EXAMINATION: VITAL SIGNS: Stable and afebrile. GENERAL: A somewhat emaciated gentleman in no acute distress, alert upon exam. HEENT: Normocephalic and atraumatic. Mucosa moist. NECK: Supple. No lymphadenopathy. LUNGS: Clear at this time. HEART: Regular rate and rhythm. ABDOMEN: Benign. EXTREMITIES: No clubbing, cyanosis or edema. NEUROLOGIC: Slow to mentate, but seems intact. LABORATORY DATA: His white count is 3.2, H&H 9.7 and 30 and platelet count was noted to be 152. His sodium is 131, potassium 3.4, BUN and creatinine of 5 and 0.8 and blood sugar was noted to be 187. ASSESSMENT: This is a 76-year-old gentleman admitted to the rehab with a working diagnosis of severe malnutrition secondary to acute illness. The patient has potential to make improvement. We instituted the following multidisciplinary therapies including to, but not limited to physical, occupational, respiratory, speech, nutritional services, prosthetics and orthotics. Given his complex condition and risk for more complications, rehabilitation services cannot be provided at a low level of care such as a [facility] facility. PLAN: 1. Admission for rehab for intensive inpatient therapy to include the following disciplines: A. Physical therapy to improve gait, all transfer skills and bed mobility to a modified independent level. B. Occupational therapy to improve activities of daily living to a modified independent level. C. Case management to assist with discharge planning and placement options. D. Nutrition to assist with nutritional needs. E. Rehabilitation nursing to assist in monitoring the patient's underlying medical conditions and to assist with any type of bowel or bladder management. 2. The patient's current medication and medical care will be continued. 3. The patient will be placed on standard fall precautions. 4. The patient's estimated length of stay is approximately 10-14 days. 5. We will discuss this patient during care team staff meeting this week. TRANSINT:[id number] Voice Confirmation ID: [id number] DOCUMENT ID: [id number] ERYN LUA MD at 0844 CC: [id number] DICTATION DATE: 10/11/16 0849 FUNERAL PLANNING COUNSELOR: 10/11/16 1128 ADM IN [id number] [place] [address]
--- NOTE | 2016-10-18 12:00 | NUR ---
EATING LUNCH.DENIES NEEDS.
--- NOTE | 2016-10-18 13:25 | NUR ---
REFUSES PT.CT OF HEAD ORDERED.TYLENOL 650MG PO GIVEN FOR C\O HEADACHE.
--- NOTE | 2016-10-18 15:35 | NUR ---
TAKEN TO COMMODE.INCONT OF URINE AND SMEAR OF BROWN BM;FINISHED HAVING A BM.DID NOT VOID AGAIN.CLEANED AND CHANGED.ASSISTED IN BED.CL IN REACH.
--- NOTE | 2016-10-18 16:00 | NUR ---
RESTING QUIETLY AFTER EATING CRACKERS AND MILK.CL IN REACH.ALARM ON.
--- NOTE | 2016-10-18 16:51 | NUR ---
CARE TEAM MEETING: PATIENT TENATIVE DISCHARGE DATE IS 10/23/16. WILL CONTIUNE TO FOLLOW WITH PATIENT UNTIL DISCHARGED
[2016-10-18 19:10] VITALS: BP 166/94
--- NOTE | 2016-10-18 19:10 | NUR ---
PATIENT OFF UNIT TO MEDICAL IMAGING VIA W/C ACCOMPANIED BY TONSORIAL ARTIST.
--- NOTE | 2016-10-18 19:33 | NUR ---
RECIEVED RESULTS OF CT SCAN FROM RADIOLOGIST AT THIS TIME. REPORTED TO HAVE HAD A LEFT POLYSOMNOGRAPH TECH INFARCT. NO HEMMORHAGE NOTED.
--- NOTE | 2016-10-18 20:54 | NUR ---
ATTEMPTED TO CALL CT RESULTS TO DR LUA. MESSAGE LEFT ON VOICE MAIL.
--- NOTE | 2016-10-18 21:37 | NUR ---
RESTING IN BED WITH EYES CLOSED.
--- NOTE | 2016-10-19 | NUR ---
RESTING QUIETLY IN BED WITH EYES CLOSED. RESPS ARE EVEN AND UNLABORED. NO ACUTE DISTRESS NOTED.
--- NOTE | 2016-10-19 03:01 | NUR ---
RESTING IN BED WITH EYES CLOSED.
--- NOTE | 2016-10-19 05:21 | NUR ---
RESTING IN BED WITH EYES CLOSED.
--- NOTE | 2016-10-19 08:00 | NUR ---
SHIFT ASSMT COMPLETED.DENIES NEEDS.INCONT OF URINE.CLEANED AND DRESSED.UP TO WC FOR BREAKFAST.CL IN REACH.
[2016-10-19 09:44] VITALS: BP 178/88
--- NOTE | 2016-10-19 12:00 | NUR ---
RETURNED TO ROOM.SITTING UP EATING LUNCH.
--- NOTE | 2016-10-19 16:00 | NUR ---
RESTING QUIETLY.CL IN REACH.
[2016-10-19 18:45] VITALS: BP 152/77
--- NOTE | 2016-10-19 19:50 | NUR ---
PT IS RESTING QUIETLY IN BED WITH EYES OPEN. ALERT TO SELF. CONFUSED TO TIME AND PLACE. SPEECH IS VERY QUIET AND DIFFICULT TO UNDERSTAND AT TIMES. SR'S ARE UP X 3 IN BED. CALL LIGHT AND BEDSIDE TABLE ARE WITHIN EASY REACH.
--- NOTE | 2016-10-19 22:08 | NUR ---
RESTING IN BED WITH EYES CLOSED.
--- NOTE | 2016-10-20 00:05 | NUR ---
RESTING IN BED WITH EYES CLOSED.
--- NOTE | 2016-10-20 02:15 | NUR ---
RESTING IN BED AFTER ASSIST UP TO BR AND BACK TO BED RECENTLY.
--- NOTE | 2016-10-20 06:07 | NUR ---
PT RESTING IN BED WITH EYES OPEN. LAB DRAWING AM BLOOD. NO NEEDS VOICED. NO INCONTINENCE NOTED. PT DENIES NEED TO VOID AT THIS TIME. HE HAS HAD 3 CONT VOIDS DURING THE NIGHT WITH NO ACCIDENTS.
--- NOTE | 2016-10-20 06:49 | NUR ---
TELEMETRY UNIT CONNECTED TO PT PER DR ESTHELA RAMOS.
[2016-10-20 06:53] LABS: HEMOGLOBIN A1C 14.4 % (4.8-6.0)
[2016-10-20 07:10] LABS: CHOL - HDL RATIO 2.9 ratio (2.3-4.9); LDL-HDL RATIO 1.6 ratio (1.5-3.5)
--- NOTE | 2016-10-20 07:30 | NUR ---
SLEEPING IN ROOM AND EXPLAINED TO PT THAT HE WILL NOT BE ABLE TO EAT UNTIL AFTER CT OF HEAD DONE.
[2016-10-20 08:32] VITALS: BP 140/72
--- NOTE | 2016-10-20 09:55 | NUR ---
PT OUT THE ROOM FOR TEST.
--- NOTE | 2016-10-20 10:30 | NUR ---
RACHELE HOSKINS STARTED A 20 GAUZE SALINE LOCK IN LT WRIST.
--- NOTE | 2016-10-20 11:25 | NUR ---
sitting in wheelchair in gym exercising with therapy.
--- NOTE | 2016-10-20 12:17 | NUR ---
Nutrition Follow Up: Pt reported that his appetite is good. He denied any nausea or problems at this time. Pt is eating 69% meal avg on a Diabetic diet. +BM 10/19/16. No new wt to assess. Labs noted - Glucose continues elevated. Meds noted including Glyburide, Metformin, Megace, Lasix, Novolog, Humulin. Pt with good po intake at this time. Rec continue current diet and appetite stimulant. RD following.
--- NOTE | 2016-10-20 13:01 | NUR ---
resting in bed with sideralis up x2.
--- NOTE | 2016-10-20 15:02 | NUR ---
ASSISTED TO BR WITHOUT FALLS VOIDED YELLOW URINE.
--- NOTE | 2016-10-20 17:47 | NUR ---
REPOSITIONED PT IN BED FOR DINNER.
[2016-10-20 18:45] VITALS: BP 141/73
--- NOTE | 2016-10-20 19:15 | NUR ---
PT. IN BED WITH HOB UP FOR COMFORT AND HAS NO VOICED NEEDS. ASSESSMENT COMPLETED. PT. WAS WANTING THE TOP OF THE BED SIDERAIL DOWN AND I EXPLAINED TO HIM THE PURPOSE OF THE ALL SIDERAILS IS FOR HIS SAFETY AND IF HE NEEDS ANY ASSISTANCE TO GO TO THE BATHROOM I WILL BE MORE THEN GLAD TO HELP HIM. PT. DECLINED NEED TO GO TO THE BATHROOM. OFFERED TO COVER HIM UP AND HE DID WANT THAT. CALL LIGHT WITHIN REACH.
--- NOTE | 2016-10-20 19:15 | NUR ---
PT. IN BED WITH HOB UP FOR COMFORT. ASSESSMENT COMPLETED. REQUESTING PAIN MEDICATION FOR HIS BACK PAIN WITH NIGHT TIME MEDICATIONS. PT. WAS WANTING UPPER SIDERAIL PUT DOWN. EXPLAINED TO PT. THE NEED TO KEEP SIDERAILS UP FOR HIS SAFETY. PT. AGREED. NO OTHER VOICED NEEDS AT THIS TIME. CALL LIGHT WITHIN REACH AND I RE-ORIENTED HIM TO USE THE RED BUTTON ON THE CALL LIGHT IF HE NEEDED ANY ASSISTANCE.
[2016-10-20 19:34] VITALS: BP 128/64
--- NOTE | 2016-10-20 21:00 | NUR ---
OFFERED GREY CRACKERS FOR BEDTIME SNACK AND PT. REQUESTED APPLE JUICE HE DOESN'T CARE FOR MILK.
--- NOTE | 2016-10-20 21:30 | NUR ---
PT. CALLED ME TO HIS ROOM AND WAS REQUESTING TO GET OOB TO GO TO THERAPY. EXPLAINED TO PT. THAT IT WAS 9:30 AT NIGHT AND THERE WERE NO THERAPIST HERE AT THIS TIME AND TOMORROW WAS SUNDAY AND I DIDN'T KNOW IF HE WAS HAVING THERAPY THEN. PT. JUST REARRANGED HIMSELF BACK IN BED. I ASKED HIM IF HE WANTED TO BE COVERED UP AND HE SAID YES SO I COVERED HIM UP AND MADE SURE HE HAD THE CALL LIGHT IN HIS HAND.
--- NOTE | 2016-10-20 23:15 | NUR ---
PT. CALLED FOR ASSISTANCE TO GO TO THE BATHROOM WHERE HE URINATED WITHOUT ANY PROBLEMS WHILE SITTING DOWN. PT. FIRST TOLD ME HE NEEDED TO ALSO HAVE A BM BUT HE DIDN'T. ASSISTED PT. BACK TO BED AND POSITIONED TO COMFORT WITH CALL LIGHT IN HIS HAND.
--- NOTE | 2016-10-21 00:19 | NUR ---
PT. IN BED WITH HOB UP FOR COMFORT WITH EYES CLOSED AND RESP. EVEN. CALL LIGHT WITHIN REACH.
--- NOTE | 2016-10-21 04:02 | NUR ---
PT. IN BED WITH HOB UP FOR COMFORT WITH EYES CLOSED AND RESP. EVEN. CALL LIGHT WITHIN REACH.
--- NOTE | 2016-10-21 08:19 | NUR ---
SITTING UP IN BED EATING BREAKFAST. ANSWERS QUESTIONS WITH SLOW RESPONSE. DENIES PAIN. FEEDS SELF
[2016-10-21 10:00] VITALS: BP 105/58
--- NOTE | 2016-10-21 10:01 | NUR ---
STOOD UP IN ROOM BESIDE BED, PULLED PANTS DOWN AND PEED. ASST PT TO BATHROOM. ENCOURAGED HIM TO USE URINAL AND CALL FOR ASST.
--- NOTE | 2016-10-21 17:35 | NUR ---
SITTING ON SIDE OF BED EATING SUPPER. BED ALARM IN USE. RESPONSES STILL SLOW.
--- NOTE | 2016-10-21 19:10 | NUR ---
PT SITTING ON SIDE OF BED WANTING TO TRANSFER TO WHEELCHAIR. PT ASSISTED TO WHEELCHAIR. NO COMPLAINTS OR CONCERNS MADE KNOWN AT THIS TIME. CALL LIGHT IN REACH. WILL CONTINUE TO OBSERVE.
[2016-10-21 19:52] VITALS: BP 134/72
--- NOTE | 2016-10-21 21:20 | NUR ---
PT IN BED WITH EYES OPEN WITH NO SIGN/SYMPTOMS OF DISTRESS NOTED. WATER AND CALL LIGHT IN REACH. WILL CONTINUE TO OBSERVE.
--- NOTE | 2016-10-22 00:27 | NUR ---
PT BED ALARM SOUNDING AND SITTING ON SIDE OF BED. STATES THAT HE WAS JUST ADJUSTING CLOTHING. NO OTHER NEEDS MADE KNOWN. CALL LIGHT IN REACH. WILL CONTINUE TO OBSERVE.
--- NOTE | 2016-10-22 02:39 | NUR ---
PT STANDING UP AT BEDSIDE WITH BED ALARM SOUNDING. PT REQUESTING TO GO TO SINK AND WASH HANDS. ASSISTED TO WHEELCHAIR AND PUSHED TO SINK AND ASSISTED WITH HAND WASHING AND RETURNED TO BED. CALL LIGHT IN REACH. WILL CONTINUE TO OBSERVE.
--- NOTE | 2016-10-22 05:59 | NUR ---
PT. SITTING UP IN HIS BED. ASKED PT. IF HE NEEDED HIS PILLOWS/HOB ADJUSTED AND HE SAID YES. REMOVED ONE PILLOW AND ADJUSTED HOB UP AND NOW PT. IS MORE COMFORTABLE. PT. HAS HX OF BACK PROBLEMS THAT PT. TOLD ME ABOUT WHEN I WAS HIS NURSE LAST WEEK. CALL LIGHT WITHIN REACH FOR ANY OTHER NEEDS.
[2016-10-22 07:00] VITALS: BP 129/64
--- NOTE | 2016-10-22 07:30 | NUR ---
RESTING QUIETLY IN BED. CALL LIGHT IN REACH
--- NOTE | 2016-10-22 17:56 | NUR ---
SITTING UP IN BED EATING SUPPER AND WATCHING FOOT BALL GAME ON TV. NO S/S DISTRESS.
[2016-10-22 18:54] VITALS: BP 153/79
--- NOTE | 2016-10-22 19:58 | NUR ---
PT IN BED WITH FAMILY AT BEDSIDE WATCHING GAME. NO CONCERNS MADE KNOWN AT THIS TIME. WATER AND CALL LIGHT IN REACH. WILL CONTINUE TO OBSERVE.
--- NOTE | 2016-10-22 23:05 | NUR ---
PT IN BED WITH EYES CLOSED AND CHEST RISING. WITHOUT SIGN/SYPTOMS OF DISRESS NOTED AT THIS TIME. WATER AND CALL LIGHT IN REACH. WILL CONTINUE TO OBSERVE.
--- NOTE | 2016-10-22 23:48 | NUR ---
PT PUSHES CALL LIGHT AND THIS NURSE WENT TO ASSESS NEED PATIENT STATES HE HAS LEFT SIDED CHEST PAIN. HOB ELEVATED AND O2 VIA NASAL CANNULA AT 2LPM APPLIED. V/S 142/77, 78, 22, 98.8 O2SAT 100%. ASSESSED AGAIN AND STATES PAIN IN ACROSS SHOULDERS, UPPER BACK, AND NECK. PRN TYLENOL GIVEN. WILL CONTINUE TO OBSERVE.
--- NOTE | 2016-10-23 01:23 | NUR ---
PT IN BED WITH EYES OPEN. NO COMPLAINTS OF PAIN OR DISCOMFORT. ASSISTED TO BATHROOM WITH YELLOW URINARY OUTPUT. PT WASHED HANDS AND RETURNED TO BED. NO OTHER CONCERNS NOTED AT THIS TIME. WATER AND CALL LIGHT IN REACH.
--- NOTE | 2016-10-23 03:48 | NUR ---
PT SITTING ON SIDE OF BED. NO NEEDS MADE KNOWN. CALL LIGHT IN REACH. WILL CONTINUE TO OBSERVE.
--- NOTE | 2016-10-23 05:19 | NUR ---
PT IN BED WITH EYES CLOSED AND CHEST RISING. RESPIRATIONS EVEN AND UNLABORED. NO SIGN/SYMPTOMS OF DISTRESS NOTED AT THIS TIME. CALL LIGHT IN REACH
--- NOTE | 2016-10-23 07:30 | NUR ---
RESTING QUIETLY IN BED. CALL LIGHT IN REACH
--- NOTE | 2016-10-23 09:25 | NUR ---
SAT IN W/C FOR BREAKFAST, NOW IN SHOWER WITH O.T. MENTATION REMAINS SLOW AND HE NEEDS REPETITIVE SIMPLE COMMANDS FOR TASKS. INSTRUCTED TO WALK OUT OF BATHROOM TO HIS BED AND HE WALKED INTO THE SHOWER AND STOPPED INSTEAD. BED ALARM IN PLACE.
[2016-10-23 09:38] VITALS: BP 121/57
--- NOTE | 2016-10-23 14:00 | NUR ---
denies needs or pain. slow to respond to questions
--- NOTE | 2016-10-23 17:54 | NUR ---
RESTING IN BED. SAT ON SIDE OF BED AND ATE SUPPER. FEEDS SELF. WAS MORE VERBAL AND QUICKER TO RESPOND WHEN FILLING OUT MENU FOR TOMORROW
[2016-10-23 18:19] VITALS: BP 107/57
--- NOTE | 2016-10-23 19:16 | NUR ---
PT IN BED WITH FRIEND AND FAMILY AT BEDSIDE. NO COMPLAINT OF PAIN OR CONCERNS MADE KNOWN. FRIEND AND FAMILY LEFT FOR THE NIGHT. LIGHT TURNED OFF PER REQUEST. CALL LIGHT IN REACH. WILL CONTINUE TO OBSERVE.
--- NOTE | 2016-10-23 22:03 | NUR ---
PT IN BED WITH EYES CLOSED AND CHEST RISING. NO SIGN/SYMPTOMS OF DISTRESS NOTED AT THIS TIME. WATER AND CALL LIGHT IN REACH. WILL CONTINUE TO OBSERVE.
--- NOTE | 2016-10-24 01:19 | NUR ---
PT IN BED WITH EYES OPEN. NO SIGN/SYMPTOMS OF DISTRESS NOTED. CONFUSED WITH TIME HE ATTEMPTS TO GET UP SOUNDING BED ALARM THINKING IT IS 5:00 AND IS ORIENTED TO ACTUAL TIME PT RETURNS TO BED ON OWN. CALL LIGHT IN REACH. WILL CONTINUE TO OBSERVE.
--- NOTE | 2016-10-24 04:11 | NUR ---
PT IN BED AT THIS TIME. FREQENTLY GETTING OUT OF BED SOUNDING BED ALARM. UPON ASSESSMENT PT DOES NOT NEED ANYTHING. AT TIMES HE JUST WANTS TO SIT ON SIDE OF BED FOR A FEW MINUTES AND THEN RETURN TO LYING POSITION. OTHER TIMES CONFUSED ON TIME AND REORIENTED AND RETURNS TO BED. NO CONCERN MADE KNOWN. DENIES PAIN OR FEELING ABNORMAL. NO SIGN/SYMPTOMS OF DISTRESS NOTED. CALL LIGHT IN REACH. WILL CONTINUE TO OBSERVE.
--- NOTE | 2016-10-24 06:23 | NUR ---
PT IN BED WITH EYES OPEN. ASSISTED TO BATHROOM FOR URINATION WITH BRIEF CHANGED. NO CONCERNS MADE KNOWN. CALL LIGHT IN REACH.
--- NOTE | 2016-10-24 07:00 | NUR ---
Received pt. in bed awake and oriented to person. Denies any needs at this time. Pt is very quiet and does not speak much. Stable condition observed. Vital signs: Temp. 98.7, pulse 96, resp. 14, b/p 134/78, 02Sat 96%. Lt arm has saline lock that is patent. Will be monitoring pt. throughout this shift and assisting prn with adl's. Pt. ate 100% of his breakfast.
[2016-10-24 09:33] VITALS: BP 134/78
--- NOTE | 2016-10-24 17:50 | NUR ---
Pt. has had an uneventful day. He went to therapy before lunch and sat up in his wheelchair through lunchtime and then went back to therapy this afternoon. He participated well in therapy. He has slow mentation and requires minimal to maximum assist with adl's. Pt. has slept later on this afternoon and woke up to supper.
--- NOTE | 2016-10-24 20:00 | NUR ---
PT IS RESTING IN HIS ROOM SITTING ON THE SIDE OF HIS BED. ALERT TO SELF. CONFUSED TO TIME, PLACE AND SITUATION. PT ASSISTED TO THE BATHROOM AT THIS TIME. VOIDED WITHOUT DIFFICULTY. TELEMETRY UNIT IS INTACT. SR'S ARE UP X 3 WHILE IN BED. CALL LIGHT AND BEDSIDE TABLE ARE WITHIN EASY REACH. BED ALARM ON.
[2016-10-24 20:37] VITALS: BP 117/61
--- NOTE | 2016-10-24 22:18 | NUR ---
RESTING QUIETLY IN BED WITH EYES CLOSED. RESPS ARE EVEN AND UNLABORED. NO ACUTE DISTRESS NOTED.
--- NOTE | 2016-10-25 01:22 | NUR ---
PT RESTING QUIETLY, HAS BEEN UP TO BATHROOM, NEEDS VERBAL AND TOUCH CUES. AMBULATES SLOWLY, RESPIRATIONS REGULAR AND UNLABORED.
[2016-10-25 06:06] LABS: BASOPHILS 0.2 % (0.0-2.0); EOSINOPHILS 0.7 % (0-7); HEMOGLOBIN 10.6 g/dL (13.5-17.5); IMMATURE GRANULOCYTES 0.5 % (0-5); LYMPHOCYTES 41.4 % (15-50); MCH 27.2 pg (26.0-34.0); MCHC 33.1 g/dL (31.0-37.0); MCV 82.3 fL (80.0-100.0); MEAN PLATELET VOLUME 9.3 fL (7.4-10.4); MONOCYTES 11.6 % (2-11); NEUTROPHILS 45.6 % (40-80); RBC 3.89 10x6/uL (4.20-6.10); RDW 15.8 % (11.5-14.5); WBC 4.3 10x3/uL (4.8-10.8)
[2016-10-25 06:07] LABS: PLATELET COUNT 173 10x3/uL (130-400)
--- NOTE | 2016-10-25 06:19 | NUR ---
PT RESTING IN BED WITH EYES CLOSED. AWOKE EASILY TO VERBAL STIMULI. FSBS 140. ASSISTED TO BATHROOM. VOIDED WITHOUT DIFFICULTY. NO INC. EPISODES NOTED THIS SHIFT.
[2016-10-25 06:20] LABS: CALC OSMOLALITY 270 mosm/kg (275-300); CALCIUM 9.5 mg/dL (8.5-10.1); CARBON DIOXIDE 22.5 mmol/L (21.0-32.0); CHLORIDE - SERUM 98 mmol/L (98-107); SODIUM 132 mmol/L (136-145); UREA NITROGEN 24 mg/dL (7-18); eGFR NON AFRICAN AMERICAN 77 mL/min (90-120)
[2016-10-25 06:22] LABS: GLUCOSE 137 mg/dL (74-106)
--- NOTE | 2016-10-25 08:00 | NUR ---
ALARM ACTIVE.IN BED CL IN REACH.
--- NOTE | 2016-10-25 08:16 | NUR ---
PT RESTING IN BED WITH EYES OPEN CALL LIGHT IN REACH NO PROBLEMS WILL MONITER
--- NOTE | 2016-10-25 10:13 | NUR ---
Nutrition Follow Up: Chart reviewed. Pt is eating 56% meal avg on a Diabetic diet. +BM 10/23/16. Labs noted - Na low, Glucose elevated. Meds noted including Glyburide, Metformin, Megace, Lasix, Novolog, Humulin. No new wt to assess. Pt with fair po intake at this time. Rec continue current diet. Will continue to provide selective menus and honor food preferences. RD following.
--- NOTE | 2016-10-25 10:16 | NUR ---
REFERRAL HAS BEEN FAXED TO [facility] IN [place] FOR POSSIBLE ADMISSION. WILL CONTINUE TO FOLLOW WITH PATIENT UNTIL DISCAHRGED
--- NOTE | 2016-10-25 11:06 | NUR ---
PATIENT HAS BEEN ACCEPTED TO [facility] AND WILL TRANSPORT THERE VIA FACILITY VAN AT 10AM ON 10/26/16
[2016-10-25] MEDS ORDERED: Diabeta PO (12:21)
[2016-10-25] MEDS ORDERED: GLUCOPHAGE500 MG PO (12:21)
--- NOTE | 2016-10-25 15:06 | NUR ---
REFERRAL HAS BEEN SENT TO [facility] TO SEE IF BED AVAILABLE, CLOSER TO FAMILY. WILL CONTINUE TO FOLLOW WITH PATIENT
--- NOTE | 2016-10-25 16:55 | NUR ---
[place] REFERAL HAS BEEN CANCELED . PATIENT WILL ADMITT TO [facility], TRANSPORTATION WILL BE HERE AT 10:00 AM 10/26/16. SISTER AND NEPUJA NOTIFIED. TRIED CALLING BROTHER AND DAUGHTER AND MARILYNTiara SAYS VOICE BOX FULL
--- NOTE | 2016-10-25 17:58 | NUR ---
PT RESTING IN BED WITH EYES OPEN CALL LIGHT IN REACH NO PROBLEMS WILL MONITER
--- NOTE | 2016-10-25 19:30 | NUR ---
SALINE LOCK DC'D FROM LEFT FOREARM WITH CATHETER INTACT. BANDAID APPLIED TO SITE.
[2016-10-25 20:00] VITALS: BP 118/72
--- NOTE | 2016-10-25 20:00 | NUR ---
PT IS RESTING IN BED WITH EYES OPEN. ALERT TO SELF. DISORIENTED X TIME, PLACE AND SITUATION. UNABLE TO REORIENT PT AT THIS TIME. PT ASSISTED TO THE BATHROOM. VOIDED WITHOUT DIFFICULTY. AMBULATED WITH CGA. GAIT IS STEADY, BUT HE SHUFFLES SLOWLY. SR'S ARE UP X 3 WHILE IN BED. CALL LIGHT AND BEDSIDE TABLE ARE WITHIN EASY REACH. BED ALARM IS ON.
--- NOTE | 2016-10-25 22:16 | NUR ---
RESTING QUIETLY IN BED WITH EYES CLOSED. RESPS ARE EVEN AND UNLABORED. NO ACUTE DISTRESS NOTED.
--- NOTE | 2016-10-25 23:04 | NUR ---
PT. IN BED WITH HOB UP FOR COMFORT WITH EYES CLOSED AND RESP. EVEN. SIDERAILS UP FOR SAFETY AND MALINI ALARM IN THE "ON" POSITION. CALL LIGHT WITHIN REACH
--- NOTE | 2016-10-26 00:57 | NUR ---
RESTING IN BED WITH EYES CLOSED.
--- NOTE | 2016-10-26 03:00 | NUR ---
PT IS RESTING IN BED WITH EYES OPEN. NO NEEDS VOICED. PT ASKED TO WALK TO THE BATHROOM TO VOID. HE ADAMANTLY REFUSED, SAYING HE DIDNT HAVE TO VOID. PT HAS NOT VOIDED YET THIS SHIFT. WILL MONITOR.
--- NOTE | 2016-10-26 04:56 | NUR ---
PT NOTED SITTING ON THE SIDE OF HIS BED. HE CONTINUES TO REFUSE TO GO TO THE BATHROOM TO VOID. NO INCONTINENCE NOTED.
[2016-10-26 08:00] VITALS: BP 123/68
--- NOTE | 2016-10-26 08:00 | NUR ---
PATIENT SITTING UP FOR BREAKFAST. ALERT/ORIENT X2. BOX ALARM ON. CALL LIGHT WITHIN REACH. VOICES NO NEEDS AT THIS TIME.
--- NOTE | 2016-10-26 09:00 | NUR ---
DR. Mary LUA INTO SEE PATIENT. ORDERS RECEIVED TO DISCHARGE PATIENT TO [facility].
--- NOTE | 2016-10-26 09:03 | NUR ---
patient discharging to [facility] via facility van. appointment with Dr. Bahena 11/28/16 @ 10:20. appointment with pcp Dr. MUELLER WILL BE MADE WHEN DISCHARGED FROM FACILITY. . WILL CONTINUE TO FOLLOW WITH PATIENT.
--- NOTE | 2016-10-26 10:09 | NUR ---
PATIENT TAKEN TO [facility] BY [facility] STAFF. PATIENT BROTHERS ARE HERE AND WILL MEET PATIENT AT [facility] TO HELP WITH ADMISSION PROCESS.
== END 2016-10-26 10:28 | DRG 640 ==
LOC: D.REHAB 22:35
PROVIDERS: ADMIT Emergency Medicine
DX: E43 Unspecified severe protein-calorie malnutrition (principal); I63.9 Cerebral infarction, unspecified; E87.1 Hypo-osmolality and hyponatremia; R53.83 Other fatigue; R50.9 Fever, unspecified; I10 Essential (primary) hypertension; E78.5 Hyperlipidemia, unspecified; D64.9 Anemia, unspecified; R00.0 Tachycardia, unspecified; R11.0 Nausea; R53.1 Weakness; E11.65 Type 2 diabetes mellitus with hyperglycemia; Z68.21 Body mass index [BMI] 21.0-21.9, adult; H54.7 Unspecified visual loss

== ENCOUNTER 2016-12-26 17:35 | Inpatient (IN) | payer MEDICARE ==
[~2016-12-26] VITALS: Ht 175.3 cm; Wt 83.9 kg
[~2016-12-26 17:35] MED LIST changes: +Diabeta PO
[2016-12-26 18:39] LABS: BASOPHILS 0 % (0.0-2.0); EOSINOPHILS 0.6 % (0-7); HEMATOCRIT 31.9 % (42.0-54.0); HEMOGLOBIN 10.5 g/dL (13.5-17.5); IMMATURE GRANULOCYTES 0.4 % (0-5); LYMPHOCYTES 13.1 % (15-50); MCH 28.9 pg (26.0-34.0); MCHC 32.9 g/dL (31.0-37.0); MCV 87.9 fL (80.0-100.0); MEAN PLATELET VOLUME 10.8 fL (7.4-10.4); NEUTROPHILS 78.9 % (40-80); PLATELET COUNT 155 10x3/uL (130-400); RBC 3.63 10x6/uL (4.20-6.10); RDW 15.8 % (11.5-14.5); WBC 5.1 10x3/uL (4.8-10.8)
[2016-12-26 19:02] LABS: ALBUMIN 3.7 g/dL (3.4-5.0); ALKALINE PHOSPHATASE 58 U/L (46-116); ALT (SGPT) 13 U/L (10-68); BILIRUBIN - TOTAL 0.37 mg/dL (0.2-1.3); CALC OSMOLALITY 275 mosm/kg (275-300); CALCIUM 9.1 mg/dL (8.5-10.1); CARBON DIOXIDE 21.7 mmol/L (21.0-32.0); CHLORIDE - SERUM 103 mmol/L (98-107); POTASSIUM - SERUM 4.8 mmol/L (3.5-5.1); SODIUM 137 mmol/L (136-145); UREA NITROGEN 20 mg/dL (7-18); eGFR NON AFRICAN AMERICAN 77 mL/min (90-120)
[2016-12-26 19:03] LABS: GLUCOSE 87 mg/dL (74-106)
[2016-12-26 19:06] LABS: HEMOGLOBIN A1C 8.6 % (4.8-6.0)
--- NOTE | 2016-12-26 20:14 | NUR ---
REC'D TO ROOM 2222 FROM ER DEPT PER STRETCHER WITH DX NAUSEA/VOMITING/DIARHEA NKDA ADMITED TO DR. HUI. IV PATENT RT AC NS AT 100CC'S/HR.
[2016-12-26 20:39] VITALS: BP 139/98; BMI 27.3
[2016-12-26 20:46] VITALS: BP 139/98
[2016-12-27 04:00] VITALS: BP 135/50
[2016-12-27 06:49] LABS: BASOPHILS 0.2 % (0.0-2.0); EOSINOPHILS 0.4 % (0-7); HEMATOCRIT 28.9 % (42.0-54.0); HEMOGLOBIN 9.7 g/dL (13.5-17.5); IMMATURE GRANULOCYTES 0.2 % (0-5); LYMPHOCYTES 26.1 % (15-50); MCH 29.1 pg (26.0-34.0); MCHC 33.6 g/dL (31.0-37.0); MCV 86.8 fL (80.0-100.0); MONOCYTES 7.4 % (2-11); NEUTROPHILS 65.7 % (40-80); PLATELET COUNT 178 10x3/uL (130-400); RBC 3.33 10x6/uL (4.20-6.10); RDW 15.9 % (11.5-14.5); WBC 4.8 10x3/uL (4.8-10.8)
--- NOTE | 2016-12-27 06:52 | NUR ---
NO CHANGES IN ASSESSMENT SEE DOWN TIME NURSES' NOTES.
[2016-12-27 07:03] LABS: CALC OSMOLALITY 268 mosm/kg (275-300); CALCIUM 8.8 mg/dL (8.5-10.1); CARBON DIOXIDE 17.4 mmol/L (21.0-32.0); CHLORIDE - SERUM 102 mmol/L (98-107); GLUCOSE 104 mg/dL (74-106); POTASSIUM - SERUM 4.2 mmol/L (3.5-5.1); SODIUM 134 mmol/L (136-145); UREA NITROGEN 16 mg/dL (7-18); eGFR NON AFRICAN AMERICAN 77 mL/min (90-120)
--- NOTE | 2016-12-27 07:10 | NUR ---
AWAKE AND ALERT AT THIS TIME. PT ASSISTED TO CHAIR BY AIDEE SAUNDERS. MALINI MAT ALARM ON AND IN USE. DENIES NEEDS AT PRESENT TIME. CALL LIGHT IN REACH, WILL CONTINUE WITH PLAN OF CARE.
--- NOTE | 2016-12-27 08:00 | NUR ---
ASSISTED PT TO BED AT THIS TIME FROM THE CHAIR. MALINI MAT ALARM AND IN WORKING ORDER. CALL LIGHT IN REACH, SRX2 WITH BED IN LOWEST POSITION AND WHEELS LOCKED. DENIES NEEDS OR PAIN AT THIS TIME. WILL CONTINUE WITH PLAN OF CARE.
[2016-12-27 09:00] VITALS: BP 123/74
[2016-12-27] MEDS ORDERED: GLYBURIDE2.5 MG PO (10:05)
--- NOTE | 2016-12-27 10:50 | NUR ---
URINE SAMPLE OBTAINED AND TAKEN TO THE LAB FOR ORDERED UA AT THIS TIME. DENIES FURTHER NEEDS. BED ALARM ON. WILL CONTINUE WITH PLAN OF CARE.
--- NOTE | 2016-12-27 12:15 | NUR ---
BLOOD SUGAR 229 AT THIS TIME. WILL TREAT WHEN LUNCH TRAYS ARRIVE.
[2016-12-27 12:30] LABS: APPEARANCE CLEAR (CLEAR); BILIRUBIN NEGATIVE (NEGATIVE); COLOR YELLOW (YELLOW); EPITHELIAL CELLS OCC /hpf (0-5); GLUCOSE 50 mg/dL (NEGATIVE); KETONE NEGATIVE (NEGATIVE); LEUKOCYTE ESTERASE NEGATIVE (NEGATIVE); NITRITE NEGATIVE (NEGATIVE); PROTEIN TRACE mg/dL (NEGATIVE); UROBILINOGEN NORMAL (NORMAL); WHITE CELLS - URINE OCC /hpf (0-5)
[2016-12-27 12:31] LABS: AMORPHOUS SEDIMENT <1+ /lpf (NONE SEEN); BACTERIA FEW /hpf (NONE SEEN); RED CELLS - URINE NONE SEEN /hpf (0-5)
[2016-12-27 12:34] VITALS: Ht 175.3 cm; Wt 83.9 kg
[2016-12-27 13:34] VITALS: BP 154/83
--- NOTE | 2016-12-27 16:18 | NUR ---
Patient Name: TIM CANDELARIA Admission Status: ER Accout number: [id number] Admission Date: 12-26-2016 : 1940 Admission Diagnosis: Attending: WOO Current LOS: 1 Anticipated DC Date: 01-01-2017 Planned Disposition: Home Primary Insurance: MEDICARE A & B Discharge Planning Comments: CM MET WITH PATIENT REGARDING D/C NEEDS AND PLANS. PATIENT STATED HE LIVES WITH HIS NIECE (МАРИЯ) AND SHE WILL DRIVE HIM HOME AT DISCHARGE. PATIENT STATED THERE ARE 2 STEPS W/RAILS TO ENTER HOME AND NO STAIRS INSIDE. PATIENTS NIECE HELPS WITH BATH, DRESSING, MEDS, AND CHECKS HIS BLOOD SUGAR DAILY. PATIENTS PCP IS DR. MUELLER IN [place] AND PHARMACY IS [facility] IN [place]. PATIENT REFUSED HOME HEALTH. CM WILL CONTINUE TO FOLLOW PATIENT WITH D/C NEEDS AND PLANS. PCP DR[facility] ([place]) [phone] [facility] ([facility] [phone] Medical Typist: Haley Stevens Is the patient Alert and Oriented? Yes 0 * How many steps to enter\exit or inside your home? 2 W/RAILS 0 * PCP DR. MERINO IN [place] 0 * Pharmacy [facility] IN [place] 0 * Preadmission Environment Home with Family 0 * ADLs Independent 0 * Equipment Glucometer 0 * List name and contact numbers for known caregivers / representatives who currently or will assist patient after discharge: МАРИЯ ([employer]) [phone] 0 * Community resources currently utilized None 0 * Additional services required to return to the preadmission environment? Yes 0 * Can the patient safely return to the preadmission environment? Yes 0 * Has this patient been hospitalized within the prior 30 days at any hospital? No 0 Grand Total: 0
--- NOTE | 2016-12-27 16:20 | NUR ---
CM SPOKE WITH [facility] AND PATIENT IS CURRENT WITH THEM AT THIS TIME.
[2016-12-27 17:36] VITALS: BP 116/74
[2016-12-27 20:00] VITALS: BP 147/74
--- NOTE | 2016-12-27 20:00 | NUR ---
ASSESSMENT PER FLOWSHEET. FAMILY MEMBERS AT BEDSIDE. RT VISUAL LOSS NOTED. IV PATENT RT AC OF NS AT 100CC'S/HR SITE CLEAR. SR UP X2 CALL LIGHT WITHIN REACH MALINI BEDALARM MAT ON. ALARMS ACTIVATED. TELM. SHOWS SR WITH HR 89 SCD'S ON.
--- NOTE | 2016-12-27 21:00 | NUR ---
MEDS GIVEN PER MAR. KLKW=484. 2 UNITS HUMALOG INSULIN GIVEN PER S/S.
[2016-12-27] MEDS ORDERED: NOVOLIN 70/30 110 ML SC (21:26)
--- NOTE | 2016-12-27 23:00 | NUR ---
BED ALARM SOUNDING PATIENT CLIMBED OUT OF BED STANDING BEDSIDE BED. INC URINE ASSISTED BACK TO BED BRIEF CHANGED. RESET BED ALARM.SR UP X3 CALL LIGHT WITHIN REACH DOOR OPENED.
[2016-12-28] VITALS: BP 170/88
--- NOTE | 2016-12-28 02:00 | NUR ---
INC URINE COMPLETE BED BATH WITH LINENS CHANGED. ICE CREAM GIVEN FOR SNACK.
[2016-12-28 04:00] VITALS: BP 164/80
--- NOTE | 2016-12-28 04:31 | NUR ---
EYES CLOSED RESPIRATIONS WITH EASE AND UNLABORED TURNS SELF IN BED MALINI BED ALARM MAT ON. SR UP X3 CALL LIGHT WITHINREACH. DOOR OPENED,
--- NOTE | 2016-12-28 06:12 | NUR ---
SUMU=[id number]. HUMALOG INSULIN 2 UNITS GIVEN SUBC PER S/S.
--- NOTE | 2016-12-28 06:13 | NUR ---
NO CHANGES IN ASSESSMENT MALINI BED ALARM MAT REMAINS IN PLACE.
--- NOTE | 2016-12-28 07:30 | NUR ---
AWAKE AND ALERT, DENIES NEEDS, NO S/S DISTRESS, BED LOWEST POSITION, CALL LIGHT IN REACH, WILL CONTINUE TO MONITOR
[2016-12-28 07:57] VITALS: BP 168/85
[2016-12-28 12:20] VITALS: BP 168/76
--- NOTE | 2016-12-28 16:03 | NUR ---
CM REASSESSMENT NOTE: PATIENT IS DISCHARGING HOME TODAY- NIECE DRIVING HIM. PATIENT IS CURRENT WITH [facility] AND THEY ARE AWARE OF DISCHARGE.
--- NOTE | 2016-12-28 19:44 | NUR ---
DISCHARGE PAPERS AND INSTRUCTIONS GIVEN TO PT AND NIECE, QUESTIONS ANSWERED, IV REMOVED TIP INTACT, DISCHARGED PER WC WITH BELONGINGS
== END 2016-12-28 19:49 | disposition home health service (06) | DRG 641 ==
LOC: D.ER 17:35 → D.MS 18:51
PROVIDERS: Emergency Medicine; ADMIT Emergency Medicine
DX: E86.0 Dehydration (principal); E46 Unspecified protein-calorie malnutrition; E87.1 Hypo-osmolality and hyponatremia; E11.9 Type 2 diabetes mellitus without complications; I10 Essential (primary) hypertension; R53.1 Weakness; E78.5 Hyperlipidemia, unspecified; I25.10 Atherosclerotic heart disease of native coronary artery without angina pectoris; Z86.73 Personal history of transient ischemic attack (TIA), and cerebral infarction without residual deficits

== ENCOUNTER 2017-01-31 11:30 | Emergency (ER) | payer MEDICARE ==
[2016-12-27 12:34] VITALS: BMI 27.3
[~2017-01-31 11:30] MED LIST changes: +GLYBURIDE2.5 MG PO; +NOVOLIN 70/30 110 ML SC
[2017-01-31 12:03] LABS: BASOPHILS 0.3 % (0-2); EOSINOPHILS 2.5 % (0-7); HEMOGLOBIN 9.9 g/dL (13.5-17.5); IMMATURE GRANULOCYTES 0.3 % (0-5); LYMPHOCYTES 35.5 % (15-50); MCH 28.9 pg (26.0-34.0); MCV 87.7 fL (80.0-100.0); MEAN PLATELET VOLUME 10.1 fL (7.4-10.4); MONOCYTES 9.5 % (2-11); NEUTROPHILS 51.9 % (40-80); PLATELET COUNT 172 10x3/uL (130-400); RBC 3.42 10x6/uL (4.20-6.10); RDW 14.5 % (11.5-14.5)
[2017-01-31 12:23] LABS: ALBUMIN 3.6 g/dL (3.4-5.0); ANION GAP 13.7 mmol/L (8-16); BILIRUBIN - TOTAL 0.23 mg/dL (0.2-1.3); CALCIUM 9.7 mg/dL (8.5-10.1); CARBON DIOXIDE 24.3 mmol/L (21.0-32.0); CREATININE - SERUM 1.2 mg/dL (0.6-1.3); PROTEIN - SERUM 8.2 g/dL (6.4-8.2)
== END 2017-01-31 14:11 | disposition home or self-care (01) ==
LOC: D.ER 11:30
PROVIDERS: Family Medicine
DX: E86.0 Dehydration (principal); I10 Essential (primary) hypertension; E11.9 Type 2 diabetes mellitus without complications; Z79.4 Long term (current) use of insulin

== ENCOUNTER 2017-08-13 10:13 | Emergency (ER) | payer MEDICARE ==
[2016-12-27 12:34] VITALS: BMI 27.3
[2017-08-13 10:39] LABS: EOSINOPHILS 0.6 % (0-7); HEMOGLOBIN 8.2 g/dL (13.5-17.5); IMMATURE GRANULOCYTES 5.4 % (0-5); LYMPHOCYTES 49.3 % (15-50); MCH 28.7 pg (26.0-34.0); MCHC 31.5 g/dL (31.0-37.0); MCV 90.9 fL (80.0-100.0); MEAN PLATELET VOLUME 10.1 fL (7.4-10.4); MONOCYTES 3.8 % (2-11); NEUTROPHILS 37.9 % (40-80); PLATELET COUNT 191 10x3/uL (130-400); RBC 2.86 10x6/uL (4.20-6.10); RDW 14.7 % (11.5-14.5); WBC 9.5 10x3/uL (4.8-10.8)
[2017-08-13 10:53] LABS: INR 1.78 (0.85-1.17); PROTIME 20.6 SECONDS (11.6-15.0)
[2017-08-13 10:54] LABS: APTT 53.2 SECONDS (22.8-39.4)
[2017-08-13 11:03] LABS: ALBUMIN 1.9 g/dL (3.4-5.0); ALKALINE PHOSPHATASE 54 U/L (46-116); ALT (SGPT) 251 U/L (10-68); CALC OSMOLALITY 277 mosm/kg (275-300); CALCIUM 7.6 mg/dL (8.5-10.1); CARBON DIOXIDE 16.8 mmol/L (21.0-32.0); CHLORIDE - SERUM 101 mmol/L (98-107); CREATININE - SERUM 1.7 mg/dL (0.6-1.3); GLUCOSE 309 mg/dL (74-106); POTASSIUM - SERUM 3.7 mmol/L (3.5-5.1); PROTEIN - SERUM 5.7 g/dL (6.4-8.2); SODIUM 133 mmol/L (136-145); UREA NITROGEN 12 mg/dL (7-18); eGFR NON AFRICAN AMERICAN 42 mL/min (90-120)
[2017-08-13 11:19] LABS: CREATINE KINASE 251 UL (21-232); MAGNESIUM - SERUM 2.3 mg/dL (1.8-2.4)
[2017-08-13 11:22] LABS: TROPONIN-I 2.174 ng/mL (0.000-0.060)
== END 2017-08-13 14:21 ==
LOC: D.ER 10:13
PROVIDERS: Emergency Medicine
DX: I46.9 Cardiac arrest, cause unspecified (principal)